=== PATIENT | male | born 1960 | race Caucasian/White ===

== ENCOUNTER → 2021-11-03 13:43 | Outpatient (BNVA) | payer OTHER, SELFPAY | PROVIDERS: PCP Physician Assistant Medical; Visit Provider Psychiatry & Neurology Neurology | DX: G44.049 Chronic paroxysmal hemicrania, not intractable (principal); R42 Dizziness and giddiness | CPT/HCPCS: 99212 ==

== ENCOUNTER → 2022-04-22 14:51 | Outpatient (BNVA) | payer OTHER, SELFPAY | PROVIDERS: PCP Physician Assistant Medical; Visit Provider Psychiatry & Neurology Neurology | DX: G44.049 Chronic paroxysmal hemicrania, not intractable (principal); R42 Dizziness and giddiness | CPT/HCPCS: 99212 ==

== ENCOUNTER → 2022-10-22 10:54 | Outpatient (BNVA) | payer OTHER, SELFPAY | PROVIDERS: PCP Physician Assistant Medical; Visit Provider Nurse Practitioner Family | DX: G44.049 Chronic paroxysmal hemicrania, not intractable (principal); R42 Dizziness and giddiness | CPT/HCPCS: 99212 ==

== ENCOUNTER 2023-04-26 10:47 | Outpatient (AMB) | payer OTHER, SELFPAY ==
--- NOTE | 2023-04-26 10:55 | MHC.OFFVIS ---
Intake Vital Signs 04/26/23 11:00 Weight 174 lb 8 oz BP 122/72 Blood Pressure Location Lt brachial Position Sitting Pulse 79 Pulse Source Pulse Oximeter Pulse Oximetry (%) 94 Oxygen Delivery Method Room Air Intake Visit Reasons: 6 months follow up Intake Note: 6 F/U, states still getting headaches but not the light bolts one Allergies Vitamin b12 Allergy (Severe, Uncoded 04/26/23 10:57) Anaphylaxis HPI HPI Comments History of Present Illness Details 62-year-old male comes for follow-up of his paroxysmal hemicrania and dizziness. Pt reports he started vestibular therapy. He states that he is not dizzy when he stands up and feels better. Pt reports daily bilateral temporal pressure headache, it comes and goes. He still takes Motrin almost every day to treat his headache. Pt reports that gabapentin helped with his headaches and his joint pains. However, he did not restart to take gabapentin, he thinks that gabapentin made him dizziness. He reports dizziness which is more like spinning sensation especially with changing positions quickly. He is drinking more water and less soda. [facility] Medical History Vertigo Paroxysmal hemicrania, chronic Lumbar radiculopathy Hyperlipidemia Opioid dependence Emphysema lung Seizure disorder Traumatic brain injury Surgical History No pertinent past surgical history Family History Mother Migraine Pancreatic cancer Father No known health problems Social History (Updated 04/26/23 @ 11:00 by Nohelia Beaver CMA) Alcohol intake: former Year quit: 2012 Patient Tobacco Use Status: Former Tobacco user Quit Date: 2012 Substance Use Type: Heroin Review of Systems Const All systems reviewed & are unremarkable except as noted in HPI and below Physical Exam Vital Signs: Last Vital Signs Pulse 79 04/26/23 11:00 BP 122/72 04/26/23 11:00 Pulse Ox 94 04/26/23 11:00 Oxygen Delivery Method Room Air 04/26/23 11:00 Const General: cooperative and no acute distress Nutritional Appearance: average body habitus Orientation/consciousness: patient oriented x3 Neuro General: patient oriented x3, tone normal, moves all extremities and no focal motor deficits Cognition (Neuro): normal cognition Gait exam (Neuro): Antalgic gait present Assessment & Plan Assessment & Plan (1) Paroxysmal hemicrania, chronic: Code(s): G44.049 - Chronic paroxysmal hemicrania, not intractable (2) Vertigo: Code(s): R42 - Dizziness and giddiness Plan Restart gabapentin 300 mg qHS and magnesium 400 mg qHS. Continue increased fluid intake and vestibular rehab. Medications: New magnesium oxide 400 mg PO DAILY 30 days 30 tabs 5RF gabapentin 300 mg PO BEDTIME 30 days 30 caps 6RF Coding Level of Care Code Est Pt Level 3 (04482) Diagnoses Paroxysmal hemicrania, chronic G44.049 Vertigo R42
[2023-04-26 11:00] VITALS: BP 122/72; PULSE 79; O2SAT 94
== END 2023-04-26 11:17 | disposition home or self-care (01) ==
PROVIDERS: Visit Provider Nurse Practitioner Family
DX: G44.049 Chronic paroxysmal hemicrania, not intractable (principal); R42 Dizziness and giddiness
CPT/HCPCS: 99213

== ENCOUNTER → 2023-04-26 10:47 | Outpatient (BNVA) | payer OTHER, SELFPAY | PROVIDERS: Visit Provider Nurse Practitioner Family | DX: G44.049 Chronic paroxysmal hemicrania, not intractable (principal); R42 Dizziness and giddiness | CPT/HCPCS: 99212 ==

== ENCOUNTER 2023-12-02 13:50 | Outpatient (AMB) | payer MEDICAID, SELFPAY ==
--- NOTE | 2023-12-02 13:51 | A.OFFVIS_ITS ---
Vital Signs 12/02/23 13:52 Height 5 ft 9 in Weight 175 lb 3 oz BMI 25.9 BP 126/82 Blood Pressure Location Rt brachial Position Sitting Pulse 65 Pulse Source Pulse Oximeter Pulse Oximetry (%) 98 Oxygen Delivery Method Room Air Intake Visit Reasons: possible stroke/seizure Intake Note: Patient presents for possible stroke/seizure. Patient following up after episode. Allergies Vitamin b12 Allergy (Severe, Uncoded 12/02/23 13:53) Anaphylaxis Medication List - Last Reconciled 12/02/23 by HARINDER Garcia albuterol sulfate 90 mcg/actuation 2 puffs inhalation Q6H PRN buprenorphine-naloxone 8-2 mg 1 film sublingual DAILY gabapentin 300 mg PO BEDTIME 30 days ibuprofen 800 mg PO Q8H ipratropium-albuterol 20-100 mcg/actuation (Combivent Respimat) 1 puff inhalati on Q6H magnesium oxide 400 mg PO DAILY 90 days meclizine 25 mg PO DAILY PRN HPI Comments Details: Right-handed 63-yr-old male presents for f/u urgent visit. Pt reports this past Wednesday night, he noticed left eye pressure. Then the following day, he felt off all day. He needed to take a nap, but notes that he never takes a nap. Then Wednesday night 8:30pm, he was sitting on the floor (he typically does this when watching TV), he stood up, felt dizzy- like not right in space, then developed right eye pressure which was f/b seeing colorish snow (like TV static) and bilateral cheek numbness, which lasted 2.5-3 minutes. It took a while for the vision to completely clear. No interictal tongue biting/incontinence. After, he felt weak and whoozy. He went to lay down, and felt like he might not wake up in the morning. He did not go to the ER. Over the weekend he did call our on- call service, who advised him to go to the ER, however he was worried he did not have insurance and did not go. The following day, he woke up feeling, weak, not himself. His face still still felt numb. His sister had come over and checked his BP- which was high at times but then normal other times. Since he has noticed that his coordination is off. He goes to put something down with his right hand and misses where he puts it. He denies any preceding infection/injury or diet changes. He denies any previous episodes like this. This was much worse than his usual dizziness, which had been getting worse recently. He does have brief lightening bolt headaches that come in the temples a/w brief bilateral eye seeing light/dark. He has these just every once a while. He is prone to chest pain and SOB. States he does not have a skip operator. Pt reports Dr Ram did resume his dizziness tx. [facility] Medical History Vertigo Paroxysmal hemicrania, chronic Lumbar radiculopathy Hyperlipidemia Opioid dependence Emphysema lung Seizure disorder Traumatic brain injury Surgical History No pertinent past surgical history Family History Mother Migraine Pancreatic cancer Father No known health problems Social History Alcohol intake: former Year quit: 2012 Patient Tobacco Use Status: Former Tobacco user Quit Date: 2012 Substance Use Type: Heroin Physical Exam Vital Signs: Last Vital Signs Pulse 65 12/02/23 13:52 BP 126/82 12/02/23 13:52 Pulse Ox 98 12/02/23 13:52 Oxygen Delivery Method Room Air 12/02/23 13:52 BMI result Body Mass Index 25.9 Const General: cooperative and no acute distress Orientation/consciousness: patient oriented x3 Resp Effort & Inspection: normal respiratory effort and able to speak in complete sentences Neuro Other: Speech clear Muscle strength 5/5 with exception of right lower extremity 5-/5. Antalgic gait General: patient oriented x3 Cranial nerves: Yes CN's II-XII intact bilaterally (With exception of mild right facial asymmetry chronic) Cognition (Neuro): normal cognition Deep tendon reflexes (DTR's): Right triceps reflex intensity grade: 2+, Left triceps reflex intensity grade: 2+, Rt Biceps (C5, C6): 2+, Left biceps reflex intensity grade: 2+, Right brachioradialis reflex intensity grade: 2+, Left brachioradialis reflex intensity grade: 2+, Right patellar reflex intensity grade: 3+ and Left patellar reflex intensity grade: 2+ Psych Appearance: grossly normal Mental Status: mental status grossly normal Speech and movement: Normal speech and movement present Affect: normal affect Attitude: cooperative Assessment & Plan Assessment & Plan (1) Transient visual loss: Code(s): H53.129 - Transient visual loss, unspecified eye Category: Medical (2) Altered mental status: Code(s): R41.82 - Altered mental status, unspecified Category: Medical (3) Vertigo: Code(s): R42 - Dizziness and giddiness Category: Medical (4) Hyperlipidemia: Code(s): E78.5 - Hyperlipidemia, unspecified Category: Medical Plan Note, patient had called our office again on Wednesday and I had spoken to patient. At that time initiating order for a head CT without contrast and a head and neck CTA. Patient did see PCP today who ordered blood work, which patient has done. Head CT and head and neck CTA as ordered. We will also initiate orders for cardiology consult, echocardiogram, 48 hour Holter. Start aspirin 81 mg daily at bedtime. We will follow up upon review of above. Follow-up in clinic as scheduled. Orders: Orders CA echo transthoracic complete Today E78.5 - Hyperlipidemia, unspecified, H53.129 - Transient visual loss, unspecified eye, R07.9 - Chest pain, unspecified, R41.82 - Altered mental status, unspecified, R42 - Dizziness and giddiness ECG holter monitor 48 hour Today E78.5 - Hyperlipidemia, unspecified, H53.129 - Transient visual loss, unspecified eye, R07.9 - Chest pain, unspecified, R41.82 - Altered mental status, unspecified, R42 - Dizziness and giddiness Referrals Cardiology Referral E78.5 - Hyperlipidemia, unspecified, H53.129 - Transient visual loss, unspecified eye, R07.9 - Chest pain, unspecified, R41.82 - Altered mental status, unspecified, R42 - Dizziness and giddiness Medications: New aspirin at bedtime 81 mg PO DAILY 30 days 30 tabs 6RF Scribe Plan - Not visible on output: Reviewed possible medication side effects, including but not limited to drowsiness, dizziness.
[2023-12-02 13:52] VITALS: BP 126/82; PULSE 65; O2SAT 98; BMI 25.9
== END 2023-12-02 14:50 | disposition home or self-care (01) ==
PROVIDERS: PCP Physician Assistant Medical; Visit Provider Nurse Practitioner Family
DX: H53.129 Transient visual loss, unspecified eye (principal); R41.82 Altered mental status, unspecified; R42 Dizziness and giddiness; E78.5 Hyperlipidemia, unspecified
CPT/HCPCS: 99214

== ENCOUNTER → 2023-12-02 13:50 | Outpatient (BNVA) | payer MEDICARE, MEDICAID, SELFPAY | PROVIDERS: PCP Physician Assistant Medical; Visit Provider Nurse Practitioner Family | DX: H53.123 Transient visual loss, bilateral (principal); R41.82 Altered mental status, unspecified; R42 Dizziness and giddiness; E78.5 Hyperlipidemia, unspecified | CPT/HCPCS: 99212 ==

== ENCOUNTER 2023-12-06 13:55 | Outpatient (REF) | payer MEDICARE, MEDICAID, SELFPAY ==
--- NOTE | ~2023-12-06 | CT_ITS ---
EXAMINATION: CT ANGIOGRAM HEAD CT ANGIOGRAM NECK CLINICAL INFORMATION: Reason for Exam H53.129 - Transient visual loss, unspecified eye COMPARISON: None. TECHNIQUE: Initial noncontrast program director scouting imaging of the head and neck was performed. Noncontrast head CT was also performed. Test bolus sequences followed by intravenous administration 70 mL of Omnipaque 350. Helical imaging was performed in the axial plane from the aortic arch to the skull vertex. Delayed postcontrast imaging of the head was also performed. The data was processed at the technologist development workstation for generation of MIP sequences. Angled MIPs and volume rendered reformatted images were also generated at an offline 3D workstation. Stenoses are assessed in accordance with NASCET criteria unless otherwise indicated. DLP: 2356.91 mGy-cm This CT examination was performed using dose optimization techniques as appropriate, variously including the following: *Automated exposure control. *Adjustment of mA and/or kV according to patient size (this includes techniques or standardized protocols for targeted exams where dose is matched to indication/reason for exam; i.e. extremities or head). *Use of iterative reconstruction technique. FINDINGS: CT Head: There is no evidence of acute intracranial hemorrhage or edematous territorial infarction. Encephalomalacia involving the anterior temporal lobes, anterior inferior right frontal lobe, and left gyrus rectus which is likely posttraumatic. There is also encephalomalacia involving the right middle frontal gyrus. Nolasco-white matter differentiation is preserved. The ventricles are normal in size and configuration. No evidence for obstructive hydrocephalus. No abnormal mass effect or midline shift. No extra-axial fluid collections. No pathologic intra-axial enhancement or regional oligemia. No acute soft tissue or osseous abnormalities. Chronic lamina papyracea fractures. The mastoid air cells and paranasal sinuses are clear. CT Neck: Mild thyromegaly with suggestion of several thyroid nodules. The remaining cervical soft tissues are within normal limits. Multilevel cervical spondylosis. CT Upper Chest: The lung apices demonstrate emphysematous changes. Neck CTA: Aortic Arch: Normal contour and caliber. Two vessel branching pattern of the arch with left common carotid artery arising from the brachiocephalic trunk. Great Vessel Origins: No significant stenosis of the branch origins. Right Common Carotid Artery: No focal stenosis or occlusion. Cervical Right Internal Carotid Artery: There is mild circumferential fibrofatty and calcified atherosclerotic plaque involving the proximal cervical right ICA without significant luminal narrowing. The remaining cervical course is widely patent. Left Common Carotid Artery: No focal stenosis or occlusion. Cervical Left Internal Carotid Artery: Mild calcific atherosclerotic disease of the carotid bulb and proximal internal carotid artery without flow-limiting stenosis. Cervical Right Vertebral Artery: Slightly dominant No focal stenosis or occlusion. Cervical Left Vertebral Artery: No focal stenosis or occlusion. Brain CTA: Intracranial Internal Carotid Arteries: No focal stenosis or occlusion. Right Anterior Cerebral Artery: Normal A1 segment. Normal opacification of the distal SOUTH segments. Left Anterior Cerebral Artery: Normal A1 segment. Normal opacification of the distal SOUTH segments. Anterior Communicating Artery: There is a 4 mm inferiorly projecting aneurysm at the junction of the right A1 segment and anterior communicating artery. Right Middle Cerebral Artery: Normal M1 segment of the MCA without focal stenosis or occlusion. Normal arborization of the distal segments. Left Middle Cerebral Artery: Normal M1 segment of the MCA without focal stenosis or occlusion. Normal arborization of the distal segments. Right Vertebral Artery: Normal V4 segment. Left Vertebral Artery: Terminates predominantly as PICA with small branch contributing to the basilar artery Basilar Artery: Normal without focal stenosis or occlusion. Normal appearance of the proximal superior cerebellar arteries. Right Posterior Cerebral Artery: The P1 segment is diminutive. origin of the CONVENTIONS ASSISTANT with robust opacification of the posterior communicating artery. Normal opacification of the distal CONVENTIONS ASSISTANT segments. Left Posterior Cerebral Artery: The P1 segment is diminutive. origin of the CONVENTIONS ASSISTANT with robust opacification of the posterior communicating artery. Normal opacification of the distal CONVENTIONS ASSISTANT segments. Normal opacification of the superior sagittal, straight, transverse, and sigmoid sinuses. CT/CT angio head neck IMPRESSION: 1. No acute intracranial abnormality including hemorrhage, mass effect, hydrocephalus, or acute territorial edematous infarction. 2. Encephalomalacia involving the bilateral frontal and temporal lobes which is likely posttraumatic. There is also a encephalomalacia involving the right middle frontal gyrus which may reflect sequela of prior trauma or chronic infarct. 3. No arterial high grade stenosis or large vessel occlusion in the head or neck. 4. 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 5. Mild thyromegaly with suggestion of several thyroid nodules. Recommend correlation with thyroid function tests and thyroid ultrasound
[2023-12-06] MEDS: iohexoL 350 MG/ML 100 ML INFUS..BTL 70 ML IV (15:20)
[2023-12-07 10:24] LABS: Creatinine POC 1.1 mg/dL (0.5-1.4); GFR POC > 60
== END 2023-12-06 13:56 | disposition home or self-care (01) ==
LOC: HO.CT 13:55
PROVIDERS: PCP Internal Medicine; Visit Provider Nurse Practitioner Family
DX: H53.129 Transient visual loss, unspecified eye (principal); R42 Dizziness and giddiness; E78.5 Hyperlipidemia, unspecified
CPT/HCPCS: 70496; 70498; 82565; Q9967

== ENCOUNTER → 2023-12-24 13:53 | Outpatient (REF) | payer OTHER, SELFPAY ==
--- NOTE | ~2023-12-24 | US_ITS ---
EXAMINATION: US THYROID CLINICAL INFORMATION: [id number] diffuse (endemic) goiter. COMPARISON: None available. TECHNIQUE: Linear transducer grayscale and color Doppler examination with attention to the region of the thyroid. FINDINGS: SIZE: Measurements of the thyroid lobes and nodules are given in sagittal, anteroposterior and transverse dimensions respectively. Right Thyroid Lobe: 5.9 x 2.3 x 2.2 cm, volume 15.6 mL. Parenchyma: The gland echotexture is homogeneous. Thyroid vascularity is normal. Left Thyroid Lobe: 6.1 x 1.8 x 2.2 cm, volume 12.4 mL. Parenchyma: The gland echotexture is homogeneous. Thyroid vascularity is normal. Isthmus: 0.6 cm in maximum AP dimension. Estimated total number of nodules greater than or equal to 1 cm: 2. Wafer Abrading Machine Tender nodules are described as follows: 1. Location: Left mid. Size: 1.4 x 0.9 x 1.0 cm, volume 0.7 mL. Nodule characteristics: Composition: Solid/almost completely solid (2). Echogenicity: Hypoechoic (2). Shape: Not taller than wide (0). Margins: Smooth (0). Echogenic Foci: None (0). ACR TI-RADS total points: 4 ACR TI-RADS category: 4 2. Location: Left inferior. Size: 0.8 x 0.4 x 0.5 cm, volume 0.09 mL. Nodule characteristics: Composition: Solid (2). Echogenicity: Hypoechoic (2). Shape: Not taller than wide (0). Margins: Ill-defined (0). Echogenic Foci: None (0). ACR TI-RADS total points: 4 ACR TI-RADS category: 4 3. Location: Right inferior. Size: 0.6 x 0.4 x 0.5 cm, volume 0.06 mL. Nodule characteristics: Composition: Solid/almost completely solid (2). Echogenicity: Very hypoechoic (3). Shape: Not taller than wide (0). Margins: Ill-defined (0). Echogenic Foci: None (0). ACR TI-RADS total points: 5 ACR TI-RADS category: 4 4. Location: Right inferior. Size: 1.0 x 0.8 x 0.9 cm, volume 0.4 mL. Nodule characteristics: Composition: Solid (2). Echogenicity: Hypoechoic (2). Shape: Not taller than wide (0). Margins: Smooth (0). Echogenic Foci: None (0). ACR TI-RADS total points: 4 ACR TI-RADS category: 4 NODES: No lymphadenopathy is seen in the tissue surrounding the thyroid gland. US/US thyroid IMPRESSION: Multiple TR 4 thyroid nodules the 2 largest measuring 1.4 cm on the left and 1.0 cm on the right which meet criteria for follow-up ultrasound in one, 2, 3, and 5 years. ACR TI-RADS RECOMMENDATION REFERENCE: Ultrasound-guided fine-needle aspiration, followup ultrasound, no further follow up. * TR1 (0 point) and TR2 (2 points): No FNA or follow up. * TR3 (3 points): FNA if more than or equal to 2.5 cm in maximum dimension, followup ultrasound in 1, 3 and 5 years if 1.5 to 2.4 cm in maximum dimension. * TR4 (4-6 points): FNA if more than or equal to 1.5 cm in maximum dimension, followup ultrasound in 1, 2, 3 and 5 years if 1 to 1.4 cm in maximum dimension. * TR5 (more than or equal to 7 points): FNA if more than or equal to 1 cm in maximum dimension, followup ultrasound every year for 5 years if 0.5 to 0.9 cm in maximum dimension. * TR3, TR4 or TR5 nodules that are below the size threshold for followup receive no follow up.
--- NOTE | 2023-12-24 14:04 | HM_ITS ---
* Total monitoring time 2 days. * Underlying rhythm is sinus with an average rate of 68/Min. * Rare supraventricular ectopy. * No significant pauses or AV blocks. * Patient marker used once in association with sinus rhythm. MTDD
--- NOTE | 2023-12-24 14:04 | CA_ITS ---
Transthoracic Echocardiogram Patient (Last, First, Middle): Aroldo Arevalo, Gender: Male Date of : 1960 Age: 63 Procedure Date: 12/24/2023 Procedure Type: Transthoracic Echocardiogram Location: OP Height: 175.26 cm Weight: 77.57 kg BSA: 1.93 m2 Heart Rate: 59 bpm BP: 142 / 65 mmHg Annealer Helper: MARIA DEL CARMEN Referring MD: Kellen Matos DRILL PRESS OPERATOR [employer] Symptoms: E78.5 - Hyperlipidemia, unspecified Study Quality: Adequate ECG Rhythm: Bradycardia Conclusions: - Normal left ventricular size, thickness, systolic function, and wall motion. The visually estimated ejection fraction is between 60-65%. Diastolic function is normal for age. - Normal right ventricular cavity size and systolic function. - The left atrium is likely dilated. Findings Left Ventricle Normal left ventricular size, thickness, systolic function, and wall motion. The visually estimated ejection fraction is between 60-65%. Diastolic function is normal for age. Right Ventricle Normal right ventricular cavity size and systolic function. Atria The left atrium is likely dilated. The right atrium is normal in size. Aortic Valve Normal aortic valve structure and function. There is no aortic valve stenosis. There is trace (trivial) aortic valve regurgitation. Mitral Valve Normal mitral valve structure and function. There is no mitral valve regurgitation. There is no mitral valve stenosis. Pulmonic Valve The pulmonic valve is normal. There is trace pulmonic valve regurgitation. Tricuspid Valve Normal tricuspid valve structure and function. There is no tricuspid valve regurgitation. Normal right atrial pressure. There is no evidence of pulmonary hypertension. Great Vessels All visible segments of the aorta are normal in size. The visualized portions of the pulmonary artery and branches are normal. Venous The inferior vena cava is normal in size and collapses greater than 50% with inspiration. Pericardium/Pleural There is no evidence of pericardial effusion. Prior Study Comparison No prior study available for comparison. Measurements 2D Linear Measurements IVSd: 0.96 0.6-0.9/0.6-1.0 cm LVIDd: 4.86 3.9-5.3/4.2-5.9 cm LVIDd Index: 2.52 2.4-3.2/2.2-3.1 cm/m2 LVIDs: 2.41 2.0-3.6 cm LVPWd: 0.94 0.7-1.1 cm LA Diam: 4.00 2.7-3.8/3.0-4.0 cm LAIDs Index: 2.07 1.5-2.3 cm/m2 LV Mass: 202.32 67-162/88-224 g LV Mass Index: 104.83 43-95/49-115 g/m2 LVOT Diam: 2.00 3.0+(-)1.3 cm 2D Systolic Function EF 4C: 70.50 >55% EF 2C: 67.40 >55% EF BiP: 68.70 >55% Mitral Valve MV Pk E: 0.90 MV PK A: 0.67 MV Decel Time: 193.00 E/A: 1.30 E'Lateral: 11.30 E'Medial: 9.14 E/E' Med: 9.80 E/E' Lat: 8.00 PHT: 56.00 MVA PHT: 3.93 Decel [place]: 4.67 Aortic Valve AoV Pk Myles: 1.56 AoV Mn Myles: 0.87 AoV VTI: 0.31 AoV Pk Grad: 10.00 Aov Mn Grad: 4.00 CONNOR Cont.VTI: 2.59 AI Pk Myles: 3.21 AI [place]: 1.38 LVOT LVOT Pk Myles: 1.24 LVOT Mn Myles: 0.73 LVOT VTI: 0.26 LVOT Pk Grad: 6.00 LVOT Mn Grad: 3.00 LVOT Diam: 2.00 LVOT Area: 3.14 Diastolic Function MV Pk E: 0.90 MV Pk A: 0.67 E/A: 1.30 E'Medial: 9.14 E/E' Med: 9.80 E' Laterial: 11.30 E/E' Lat: 8.00 Right Ventricle TAPSE (mm): 26.10 TVS' Mlyes: 13.80 Tricuspid Valve TR Pk Myles: 1.72 TR Pk Grad: 12.00 RA Press: 3.00 RVSP: 15.00 Great Vessels Aorta Sinus of Valsalva: 3.70 2.0-3.5 cm Ao Asc: 3.30 2.1-3.4 cm Pulmonary Valve PV Pk Myles: 1.18 Peak PV Grad: 6.00 Updated in Other Vendor System with Status of Final Davin Tsai MD electronically signed on 12/25/2023 9:28:46 PM with status of Final
== END ==
LOC: HO.CARD 13:53
PROVIDERS: PCP Internal Medicine; Visit Provider Nurse Practitioner Family
DX: E01.0 Iodine-deficiency related diffuse (endemic) goiter (principal); E78.5 Hyperlipidemia, unspecified; R42 Dizziness and giddiness; R41.82 Altered mental status, unspecified; R07.9 Chest pain, unspecified
CPT/HCPCS: 76536; 93225; 93306

== ENCOUNTER → 2023-12-24 14:04 | Outpatient (BNV) | payer OTHER, SELFPAY | PROVIDERS: PCP Internal Medicine; Visit Provider Internal Medicine Cardiovascular Disease | DX: I47.10 Supraventricular tachycardia, unspecified (principal) | CPT/HCPCS: 93227; 93306 ==

== ENCOUNTER 2024-03-07 13:46 | Outpatient (AMB) | payer OTHER, SELFPAY ==
[2024-03-07 13:51] VITALS: BP 130/60; PULSE 61; BMI 26.2
--- NOTE | 2024-03-07 13:51 | MHC.OFFVIS ---
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 Accompanied by: Self / Same As Patient Allergies Vitamin b12 Allergy (Severe, Uncoded 12/02/23 13:53) Anaphylaxis Medication List - Last Reconciled 03/07/24 by Mike Guy MD albuterol sulfate 90 mcg/actuation 2 puffs inhalation Q6H PRN aspirin 81 mg PO DAILY 30 days buprenorphine-naloxone 8-2 mg 1 film sublingual DAILY gabapentin 300 mg PO BEDTIME 30 days ibuprofen 800 mg PO Q8H ipratropium-albuterol 20-100 mcg/actuation (Combivent Respimat) 1 puff inhalation Q6H magnesium oxide 400 mg PO DAILY 90 days meclizine 25 mg PO DAILY PRN HPI Comments Details: She also has been referred for evaluation of chest pains. It seems that he has had chest pains going on for many years. In fact he saw Cardiology at [facility] almost 10 years ago when it was thought to be rather musculoskeletal. He underwent an exercise stress echocardiogram around that time which was also unremarkable. It seems that he has had off and on pain since that time. He mostly has this on the left side. Can happen any time. Even with movements like shoulder extension extra, he gets a pain. Overall, seems rather musculoskeletal than anginal. No other known cardiac issues like coronary disease or myocardial infarction or cardiomyopathy. History of smoking but not in the last few years. He states that his movement is somewhat limited because of musculoskeletal issues. [facility] Medical History Vertigo Paroxysmal hemicrania, chronic Lumbar radiculopathy Hyperlipidemia Opioid dependence Emphysema lung Seizure disorder Traumatic brain injury Surgical History No pertinent past surgical history Family History Mother Migraine Pancreatic cancer Father No known health problems Social History Alcohol intake: former Year quit: 2013 Patient Tobacco Use Status: Former Tobacco user Substance Use Type: Heroin Review of Systems Const Denies chills, Denies fatigue, Denies fever(s), Denies weight gain and Denies weight loss ENT Denies dizziness Card Denies chest pain, Denies leg edema, Denies lightheadedness, Denies palpitations, Denies dyspnea on exertion, Denies orthopnea and Denies other Resp Denies cough and Denies dyspnea on exertion GI Denies hematochezia and Denies change in stool character Musc Denies abnormal gait, Denies muscle weakness, Denies numbness, Denies radiating pain into limb and Denies tingling Neuro Denies abnormal gait, Denies dizziness, Denies numbness and Denies tingling Endo Denies fatigue and Denies palpitations Physical Exam Vital Signs: Last Vital Signs Pulse 61 03/07/24 13:51 BP 130/60 03/07/24 13:51 BMI result Body Mass Index 26.2 Office Procedures EKG Details: EKG with underlying sinus rhythm at 61/Min; cannot exclude old septal infarct; [place] [id number], Complete Assessment & Plan Assessment & Plan (1) Chest pain: Code(s): R07.9 - Chest pain, unspecified Category: Medical Plan In the recent echocardiogram, LVEF is 60-60%; normal diastolic function; suspected left atrial dilatation but otherwise unremarkable. In the Holter, underlying sinus rhythm without any significant arrhythmias. Overall, atypical sounding chronic chest pain but with underlying risk factors including long history of smoking. EKG finding could be related to body habitus. Will screen for any hemodynamically significant CAD with stress test. He states he will not be able to exercise on the treadmill and hence we can do a pharmacological stress test with Lexiscan. Plan based on findings. Orders: Orders NM cardiolite stress test Today R07.2 - Precordial pain, R07.9 - Chest pain, unspecified CA lexiscan stress w robbin Today I20.9 - Angina pectoris, unspecified, R07.9 - Chest pain, unspecified Coding Level of Care Code New Pt Level 3 (46992) Diagnoses Chest pain R07.9 CPT Codes EKG - CPT: [id number], Complete ([id number])
== END 2024-03-07 14:35 | disposition home or self-care (01) ==
PROVIDERS: PCP Internal Medicine; Visit Provider Internal Medicine
DX: R07.9 Chest pain, unspecified (principal); R94.31 Abnormal electrocardiogram [ECG] [EKG]
CPT/HCPCS: 93010; 99213

== ENCOUNTER → 2024-03-07 13:46 | Outpatient (BNVA) | payer MEDICARE, MEDICAID, SELFPAY | PROVIDERS: PCP Internal Medicine; Visit Provider Internal Medicine | DX: R07.9 Chest pain, unspecified (principal) | CPT/HCPCS: 93005; 99212 ==

== ENCOUNTER → 2024-04-07 07:49 | Outpatient (REF) | payer OTHER, SELFPAY ==
--- NOTE | ~2024-04-07 | NM_ITS ---
Lexiscan Myocardial perfusion study Indication: Chest pain Technique: The patient was brought in for a Lexiscan perfusion study on 04/07/2024 and was injected 0.4 mg of Lexiscan intravenously. Within a minute of this injection 25 mCi of sestamibi was given intravenously. Images were obtained using the SPECT gamma camera interlaced with the gating device. Images were obtained in supine position. Resting perfusion study was performed on 04/11/2024. Patient was administered 25 mCi of sestamibi intravenously at rest. Images were then obtained in supine position. Total DLP 75 mGy-cm. Images were processed with the software and compared side to side in short axis, horizontal long axis and vertical long axis views. Findings: Raw aquisition reviewed. The stress perfusion study showed decreased tracer uptake along the inferior wall. There is also adjacent subdiaphragmatic tracer uptake. There is improvement but CT attenuation correction. The gated study shows normal LV systolic function with calculated LVEF of > 70%. LV cavity is normal in size. The gated study shows normal wall thickening and contraction of segments. Resting study shows decreased tracer uptake along the inferior wall. Some improvement compared to the stress acquisition. There is improvement with CT attenuation correction. Gating at rest reveals normal wall motion with ejection fraction at 70%. The findings are consistent with inferior wall defect with was were fixed components but suspected to be from diaphragmatic attenuation artifact as well as adjacent subdiaphragmatic tracer uptake. NM/NM cardiolite stress test Impression: 1. Myocardial perfusion imaging study shows probably normal myocardial perfusion. 2. Gated LVEF is > 70% during stress and 70% during rest. 3. Transient ischemic dilatation not present. EKG component of the test reported separately. Electronically signed by: Mike Guy MD 04/12/2024 11:29 AM EDT
--- NOTE | 2024-04-07 07:51 | CA_ITS ---
Acquisition Time: 2024-04-07 07:54:32 Total Exercise Time: 00:02:00 Test Indications: CP Medications: SEE H Protocol: LEXISCAN Max HR: 097 BPM 62% of Pred: 155 BPM Max BP: 160/070 mmHG Max Work Load: 1.6 METS Pharmacological stress test with Lexiscan injection while walking slowly, with mild SOB, no chest discomfort, without arrhythmias, with normotensive response to injeciton, with nondiagnoisitic EKGs. Nuclear images pending. Test reviewed with Dr. Tsai. Referred By: Mike Guy Overread By: Shasta Keller
== END ==
LOC: HO.CARD 07:49
PROVIDERS: PCP Internal Medicine; Visit Provider Internal Medicine
DX: R07.2 Precordial pain (principal); I20.9 Angina pectoris, unspecified
CPT/HCPCS: 78452; 93017; A9500; J0280; J2785

== ENCOUNTER → 2024-04-07 07:51 | Outpatient (BNV) | payer OTHER, SELFPAY | PROVIDERS: PCP Internal Medicine; Visit Provider Nurse Practitioner | DX: R07.9 Chest pain, unspecified (principal) | CPT/HCPCS: 78452; 93016; 93018 ==

== ENCOUNTER 2024-04-27 09:33 | Outpatient (AMB) | payer OTHER, SELFPAY ==
[2024-04-27 09:40] VITALS: BP 115/50; PULSE 64; O2SAT 94; BMI 26.0
--- NOTE | 2024-04-27 09:40 | A.OFFVIS_ITS ---
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 Pt's sister, Angeli, joins via phone. Pt denies any significant interval medical changes. Pt denies any interval episodes of AMS. Head CT/CTA showed encephalomalacia in bilateral frontal and temporal lobes and right middle frontal gyrus which may reflect sequela of prior trauma or chronic infarct, and a 4mm SOUTH aneurysm- for which we referred pt to Dr Ortiz, however they referred pt to [facility] neurosurgery Dr Hahn. Dr Hahn recommended pt undergo f/u angiogram to better assess aneurysms and probable risk- pt wanted to discuss this w/ us before scheduling. Pt does have a history of known TBI. Per sister, aneurysm was initially identified many yrs ago after his TBI. CT also showed incidental Mild thyromegaly with suggestion of several thyroid nodules, for which pt underwent f/u US/biopsy, which was reassuring. Pt has not had thyroid studies. He has since seen cardiology, and is undergoing cardiac work-up. 12/06/23, CT/CT angio head neck IMPRESSION: 1. No acute intracranial abnormality including hemorrhage, mass effect, hydrocephalus, or acute territorial edematous infarction. 2. Encephalomalacia involving the bilateral frontal and temporal lobes which is likely posttraumatic. There is also a encephalomalacia involving the right middle frontal gyrus which may reflect sequela of prior trauma or chronic infarct. 3. No arterial high grade stenosis or large vessel occlusion in the head or neck. 4. 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 5. Mild thyromegaly with suggestion of several thyroid nodules. Recommend correlation with thyroid function tests and thyroid ultrasound 12/24/23, US/US thyroid Multiple TR 4 thyroid nodules the 2 largest measuring 1.4 cm on the left and 1.0 cm on the right which meet criteria for follow-up ultrasound in one, 2, 3, and 5 years. [facility] Medical History Vertigo Paroxysmal hemicrania, chronic Lumbar radiculopathy Hyperlipidemia Opioid dependence Emphysema lung Seizure disorder Traumatic brain injury Surgical History No pertinent past surgical history Family History Mother Migraine Pancreatic cancer Father No known health problems Social History Alcohol intake: former Year quit: 2012 Patient Tobacco Use Status: Former Tobacco user Substance Use Type: Heroin Physical Exam Vital Signs: Last Vital Signs Pulse 64 04/27/24 09:40 BP 115/50 L 04/27/24 09:40 Pulse Ox 94 04/27/24 09:40 Oxygen Delivery Method Room Air 04/27/24 09:40 BMI result Body Mass Index 26.0 Const General: cooperative and no acute distress Orientation/consciousness: patient oriented x3 Resp Effort & Inspection: normal respiratory effort and able to speak in complete sentences Neuro Other: low back pain General: patient oriented x3 Cranial nerves: Yes CN's II-XII intact bilaterally Cognition (Neuro): normal cognition Gait exam (Neuro): Antalgic gait present Psych Appearance: grossly normal Mental Status: mental status grossly normal Speech and movement: Normal speech and movement present Affect: normal affect Attitude: cooperative Results Reviewed Results Reviewed: [facility] Imaging Result Report Patient: Aroldo Arevalo Date of Service: 04/04/21 ? ? Patient Gender: Male Ordering Provider: Laura Lazo : 1960 ? ? ? Final MRI OF BRAIN NO CONTRAST Exam Date: 04/04/2021 3:48 PM Ordering Diagnosis: Primary stabbing headacheHistory of traumatic brain injury (ICH w/ coma secondary to TBI in ) ? MRI of the brain without intravenous contrast. ? HISTORY: Headaches. Prior traumatic brain injury with, secondary to traumatic. Injury in . ? Examination was performed on 1.5 Emilia magnet without administration of intravenous contrast. No previous studies or reports are available for comparison. ? There is no evidence of midline shift. There is no evidence of intra-axial blood fluid collections. There are areas of tissue loss, gliosis in the right frontal lobe and anterior aspects of the temporal lobes bilaterally slightly more prominent on the right. There is some suggestion of porencephalic changes in the arm posterior lateral and anterior inferior right frontal lobe. Gradient echo images revealed foci of blooming artifacts in the anterior right frontal lobe probably due to hemosiderin deposition from previous injury. Corpus callosum is maintained. ? There is no focal areas of restricted diffusion. Ventricular system is symmetric and normal in size. 4th ventricle and basal cisterns are midline and patent. Paranasal sinuses and mastoid processes are aerated. ? CONCLUSIONS: Sequela of from traumatic brain injury involving the right frontal lobe and anterior aspects of the temporal lobes bilaterally as detailed. No acute intracranial abnormalities. ? ? Reading Radiologist: Assessment & Plan Assessment & Plan (1) Altered mental status: Code(s): R41.82 - Altered mental status, unspecified Category: Medical (2) Transient visual loss: Code(s): H53.129 - Transient visual loss, unspecified eye Category: Medical (3) Anterior communicating artery aneurysm: Comment: 4 mm anterior communicating artery aneurysm. Code(s): I67.1 - Cerebral aneurysm, nonruptured Category: Medical (4) Paroxysmal hemicrania, chronic: Code(s): G44.049 - Chronic paroxysmal hemicrania, not intractable Category: Medical Plan Reviewed CT/CT angio head neck: No acute intracranial findings. Chronic Encephalomalacia in bilateral frontal and temporal lobes- likely posttraumatic in setting of known TBI. Chronic encephalomalacia in right middle frontal gyrus which may reflect sequela of prior trauma or chronic infarct. This was noted on 2020 brain MRI as well. Cardiac work-up as planned. No arterial high grade stenosis or large vessel occlusion in the head or neck. 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 Advised pt to have angiogram as advised by neurosurgery- in order to better determine size/shape of this aneurysm, which will allow for better understanding of the risk for rupture/hemorrhage and thus tx/monitoring recomendations. Mild thyromegaly with suggestion of several thyroid nodules.F/u thyroid US showed Multiple TR 4 thyroid nodules the 2 largest measuring 1.4 cm on the left and 1.0 cm on the right which meet criteria for follow-up ultrasound in one, 2, 3, and 5 years, for which we will defer to PCP. Check thyroid studies as ordered. Cardiology f/u as scheduled. Continue Aspirin 81 mg daily at bedtime. Coding Level of Care Code Est Pt Level 4 (73875) Diagnoses Altered mental status R41.82 Transient visual loss H53.129 Anterior communicating artery aneurysm I67.1 Paroxysmal hemicrania, chronic G44.049
== END 2024-04-27 10:47 | disposition home or self-care (01) ==
PROVIDERS: PCP Physician Assistant Medical; Visit Provider Nurse Practitioner Family
DX: R41.82 Altered mental status, unspecified (principal); H53.129 Transient visual loss, unspecified eye; I67.1 Cerebral aneurysm, nonruptured; G44.049 Chronic paroxysmal hemicrania, not intractable
CPT/HCPCS: 99214

== ENCOUNTER → 2024-04-27 09:33 | Outpatient (BNVA) | payer OTHER, SELFPAY | PROVIDERS: PCP Physician Assistant Medical; Visit Provider Nurse Practitioner Family | DX: R41.82 Altered mental status, unspecified (principal); G44.049 Chronic paroxysmal hemicrania, not intractable; I67.1 Cerebral aneurysm, nonruptured; H53.129 Transient visual loss, unspecified eye | CPT/HCPCS: 99212 ==

== ENCOUNTER 2024-04-27 10:50 | Outpatient (REF) | payer OTHER, SELFPAY ==
[2024-04-27 16:55] LABS: Free T4 (Free Thyroxine) 1.02 ng/dL (0.71-1.85); T4 Thyroxine 6.6 ug/dL (4.5-12.0); TSH reflex Free T4 1.15 uIU/mL (0.32-4.0)
[2024-04-28 12:13] LABS: Triiodothyronine T3 Total 106 ng/dL (76-181)
== END 2024-04-27 10:51 | disposition home or self-care (01) ==
LOC: HO.HKASLDS 10:50
PROVIDERS: Visit Provider Nurse Practitioner Family
DX: E01.0 Iodine-deficiency related diffuse (endemic) goiter (principal)
CPT/HCPCS: 36415; 84436; 84439; 84443; 84480

== ENCOUNTER 2024-11-08 13:31 | Outpatient (AMB) | payer OTHER, SELFPAY ==
[2024-11-08 13:35] VITALS: BP 130/70; PULSE 65; O2SAT 96; BMI 26.7
--- NOTE | 2024-11-08 13:35 | MHC.OFFVIS ---
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 Accompanied by: Self / Same As Patient Allergies Vitamin b12 Allergy (Severe, Uncoded 11/08/24 13:37) Anaphylaxis Medication List - Last Reconciled 11/08/24 by HARINDER Garcia albuterol sulfate 90 mcg/actuation 2 puffs inhalation Q6H PRN aspirin 81 mg PO DAILY 30 days buprenorphine-naloxone 8-2 mg 1 film sublingual DAILY carboxymethylcell-glycerin(PF) 0.5-0.9 % (Refresh Tears PF) 1 drp ophthalmic (eye) TID 30 days gabapentin 300 mg PO BEDTIME 30 days ibuprofen 800 mg PO Q8H ipratropium-albuterol 20-100 mcg/actuation (Combivent Respimat) 1 puff inhalation Q6H meclizine 25 mg PO DAILY PRN memantine 7 mg PO DAILY 30 days HPI Comments Details: 63-yr-old male presents for f/u visit for f/u of episode of AMS. Patient denies any significant interval medical history changes. He did have consult with neuro endovascular surgery with Dr. Huffman, at [facility], who advised him to undergo angiogram to better assess the intracranial aneurysm. Patient states he was going to do this however he slipped on some ice and he pulled his right inguinal groin muscle, and was hesitant to have the angiogram as he thought that this would exacerbate the groin pain. He states the pain was getting better, however he lifted his leg over his dog, and it has been hurting again. He feels though it is getting better and it should be better in about a month or so. And thus he is open to having the angiogram at that time. He states that the right groin feels aching. Denies palpable lump or visible hernia. Denies changes to his bowel or bladder. He has had additional cardiac workup, including pharmacological stress test with Lexiscan injectio while walking slowly- which he had mild shortness of breath but no chest pain, arrhythmias, and had a normotensive response to the injection without notable EKG changes. The cardiolite stress test showed probable normal myocardial perfusion with gated LVEF greater than 70% during stress and rest. Patent states that he does still sometimes have at intense brief stabbing headache. He continues to be forgetful. Patient states that he continues to take gabapentin 300 mg daily in the morning- however this was last filled in 2022. 04/27/2024, HPI: Pt denies any significant interval medical changes. Pt denies any interval episodes of AMS. Head CT/CTA showed encephalomalacia in bilateral frontal and temporal lobes and right middle frontal gyrus which may reflect sequela of prior trauma or chronic infarct, and a 4mm SOUTH aneurysm- for which we referred pt to Dr Ortiz, however they referred pt to [facility] neurosurgery Dr Hahn. Dr Hahn recommended pt undergo f/u angiogram to better assess aneurysms and probable risk- pt wanted to discuss this w/ us before scheduling. Pt does have a history of known TBI. Per sister, aneurysm was initially identified many yrs ago after his TBI. CT also showed incidental Mild thyromegaly with suggestion of several thyroid nodules, for which pt underwent f/u US/biopsy, which was reassuring. Pt has not had thyroid studies. He has since seen cardiology, and is undergoing cardiac work-up. 12/06/23, CT/CT angio head neck IMPRESSION: 1. No acute intracranial abnormality including hemorrhage, mass effect, hydrocephalus, or acute territorial edematous infarction. 2. Encephalomalacia involving the bilateral frontal and temporal lobes which is likely posttraumatic. There is also a encephalomalacia involving the right middle frontal gyrus which may reflect sequela of prior trauma or chronic infarct. 3. No arterial high grade stenosis or large vessel occlusion in the head or neck. 4. 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 5. Mild thyromegaly with suggestion of several thyroid nodules. Recommend correlation with thyroid function tests and thyroid ultrasound 12/24/23, US/US thyroid Multiple TR 4 thyroid nodules the 2 largest measuring 1.4 cm on the left and 1.0 cm on the right which meet criteria for follow-up ultrasound in one, 2, 3, and 5 years. [facility] Medical History (Updated 11/08/24 @ 14:13 by HARINDER Garcia) Dry eye of right side Vertigo Paroxysmal hemicrania, chronic Lumbar radiculopathy Hyperlipidemia Opioid dependence Emphysema lung Seizure disorder Traumatic brain injury Surgical History No pertinent past surgical history Family History Mother Migraine Pancreatic cancer Father No known health problems Social History Alcohol intake: former Year quit: 2012 Patient Tobacco Use Status: Former Tobacco user Substance Use Type: Heroin Physical Exam Vital Signs: Last Vital Signs Pulse 65 11/08/24 13:35 BP 130/70 11/08/24 13:35 Pulse Ox 96 11/08/24 13:35 Oxygen Delivery Method Room Air 11/08/24 13:35 BMI result Body Mass Index 26.7 Const General: cooperative and no acute distress Orientation/consciousness: patient oriented x3 Resp Effort & Inspection: normal respiratory effort and able to speak in complete sentences Neuro Other: low back pain- patient has a stand and sit at times throughout the visit. General: patient oriented x3 Cranial nerves: Yes CN's II-XII intact bilaterally Cognition (Neuro): normal cognition Gait exam (Neuro): Antalgic gait present Psych Appearance: grossly normal Mental Status: mental status grossly normal Speech and movement: Normal speech and movement present Affect: normal affect Attitude: cooperative Assessment & Plan Assessment & Plan (1) Altered mental status: Code(s): R41.82 - Altered mental status, unspecified Category: Medical (2) Transient visual loss: Code(s): H53.129 - Transient visual loss, unspecified eye Category: Medical (3) Anterior communicating artery aneurysm: Comment: 4 mm anterior communicating artery aneurysm. Code(s): I67.1 - Cerebral aneurysm, nonruptured Category: Medical (4) Paroxysmal hemicrania, chronic: Code(s): G44.049 - Chronic paroxysmal hemicrania, not intractable Category: Medical Plan Patient is advised to follow up with Cardiology as scheduled. We will reach out to Neurosurgery office to ask them to schedule follow-up or to schedule the angiogram to further assess the intracranial aneurysm. Continue Aspirin 81 mg daily at bedtime. Start memantine ER 7 mg daily- as this may help headache and cognitive difficulties. If tolerated, we will increase dose to 14 mg and 30 days, and again increased by 7 mg every 30 days up to 28 mg daily. I refilled gabapentin today- encouraged patient to take this at bedtime rather than in the morning as he has been doing. Discontinue magnesium order- as patient does not feel it is beneficial and he has a hard time swallowing it. Medications: New carboxymethylcell-glycerin(PF) 0.5-0.9 % (Refresh Tears PF) 1 drp ophthalmic (eye) TID 10 mL 3RF 30 days H04.121 - Dry eye syndrome of right lacrimal gland memantine then stop and increase to 14mg qd 7 mg PO DAILY 30 ea 0RF 30 days Refilled aspirin at bedtime 81 mg PO DAILY 30 tabs 6RF 30 days gabapentin 300 mg PO BEDTIME 30 caps 6RF 30 days Discontinued magnesium oxide Discontinued Reason: Doctor's Order 400 mg PO DAILY 90 days 90 tabs 1RF Coding Level of Care Code Est Pt Level 4 (95243) Diagnoses Altered mental status R41.82 Transient visual loss H53.129 Anterior communicating artery aneurysm I67.1 Paroxysmal hemicrania, chronic G44.049
--- OUTSIDE RECORDS SUMMARY | 2024-11-08 16:06 | XMS_ITS | Encounter Summary ---
Author Organization [facility] Address [address] [place] [address] Care Team Providers Care Curatorial Assistant Name Role Phone Pratik Chavira MD Primary Care Provider [phone] Reason for Visit * Reason Onset Date Comments DME- overnight order 11/03/2024 Encounter Details Date Type Department Care Team (Late st Contact Info) Description 11/03/2024 Telephone [facility] [address] [place] [address] Lili Bennett MA DME- overnight order Social History Tobacco Use Types Packs/Day Years Used Date Smoking Tobacco: Former Cigarettes Q uit: 10/20/2015 Smokeless Tobacco: Never Alcohol Use Standard Drinks/Week Comments No 0 (1 standard drink = 0.6 oz pur e alcohol) Housing Instability Answer Date Recorde d Are you worried that in the next 2 months you may not have stable housing? No 08/31/2024 Food Access & Nutrition Answer Date Rec orded Do you have access to a vari ety of food including fruits and vegetables? No 08/31/2024 Health Literacy Answer Date Recorded How often do you need to hav e someone help you when you read instructions, pamphlets, or other written material from your doctor or pharmacy? Never 08/31/2024 Caregiver: How often do you need to have someone help you when you read instructions, pamphlets, or other written material from your doctor or pharmacy? Not on file 08/31/2024 Financial Risk Answer Date Recorded How hard is it for you to pa y for the very basics like food, housing, medical care, and air conditioning / heating? Not very hard 08/31/2024 Transportation Answer Date Recorded Has the lack of transportati on kept you from meetings, work, or from getting things needed for daily living? No Has the lack of transportati on kept you from medical appointments or from getting medications? No 08/31/2024 Social Isolation Answer Date Recorded How often do you feel lonely or isolated from th ose around you? Never 08/31/2024 Food Risk Answer Date Recorded Within the past 12 months we worried whether our food would run out before we got money to buy more. Never true 08/31/2024 Within the past 12 months th e food we bought just didn't last and we didn't have money to get more. Never true 08/31/2024 Dependent Care Answer Date Recorded Do you need help finding or paying for care for your loved ones. For example, assistant child care teacher or elderly care for an older adult? No 08/31/2024 Education Answer Date Recorded Do you think completing more education or training, like finishing a GED, going to college, or learning a trade, would be helpful for you? No 08/31/2024 Employment and Income Answer Date Recor ded During the last four weeks, have you been actively looking for work? No 08/31/2024 Living Situation Answer Date Recorded What is your living situation? 0 08/31/2024 Sex and Gender Information Value Date Recorded Sex Assigned at Not on file Legal Sex Male 3:42 AM EST Gender Identity Not on file Sexual Orientation Not on file documented as of this encounter Progress Notes * Lili Melton MA - 11/03/2024 3:42 PM EDT Order sent to Nohemy * Lili Melton MA - 11/03/2024 3:38 PM EDT ----- Message from Bill Xiao NP sent at 11/03/2024 11:36 AM EDT ----- Please obtain results from [employer] for patient ALVARO on 2L. documented in this encounter Plan of Treatment Upcoming Encounters Date Type Department Care Team (Late st Contact Info) Description 01/12/2025 10:10 AM EDT Office Visit Pulmonolgy - [place] [address] [place] [phone] Honey Xiao NP [address] [place] [address] documented as of this encounter Visit Diagnoses Not on filedocumented in this encounter Additional Health Concerns Assessment Noted Time PHQ-9 Depression Total Score: 0 08/31/19 25 10:41 AM EST documented as of this encounter Care Teams Curatorial Assistant Relationship Specialty Start Date End Date Pratik Chavira MD [address] [place] [phone] PCP - General Internal Medicine 06/26/24 documented as of this encounter
--- OUTSIDE RECORDS SUMMARY | 2024-11-08 16:07 | XMS_ITS | Encounter Summary ---
Author Organization [facility] Address [address] [place] [address] Care Team Providers Care Breastfeeding Educator Name Role Phone Pratik Chavira MD Primary Care Provider [phone] Reason for Visit * Reason Comments COPD Lung Nodule Encounter Details Date Type Department Care Team (Latest Contact Info) Description 11/03/2024 11:10 AM EDT Office Visit Pulmonolgy - [place] [address] [place] [phone] Honey Xiao NP [address] [place] [address] Centrilobular emphysema (CMS/HCC) (Primary Dx); Lung nodules; Nocturnal hypoxia; Chronic rhinitis Social History Tobacco Use Types Packs/Day Years [...] care for your loved ones. For example, child care director or elderly care for an older adult? [...] on file documented as of this encounter Last Filed Vital Signs Vital Sign Reading Time Taken Comments Blood Pressure 114/70 11/03/2024 11:11 AM EDT Pulse 77 11/03/2024 11:11 AM EDT Temperature 36.7 ??C (98.1 ??F) 11/03/2024 1 1:11 AM EDT Respiratory Rate 16 11/03/2024 11:1 1 AM EDT Oxygen Saturation 96% 11/03/2024 11: 11 AM EDT Inhaled Oxygen Concentration - - Weight 82.5 kg (181 lb 12.8 oz) 025 11:11 AM EDT Height 175.3 cm (5' 9 ) 11/03/2024 11:1 1 AM EDT Body Mass Index 26.85 11/03/2024 11:11 AM EDT documented in this encounter Ordered Prescriptions Prescription Sig Dispense Quantity Refills Last Filled Start Date End Date sodium chloride-aloe vera (Mcfaddin Saline) gel topical gelIndications:Chr onic rhinitis Apply 1 Application to affected nostril(s) if needed (nasal dryness.). 14.1 g 1 11/03/2024 fluticasone propionate (FLONASE) 50 mcg/actuation nasal sprayIndications:C hronic rhinitis Administer 2 sprays into each nostril 1 (one) time each day for 14 days. Shake gently. Before first use, prime pump. After use, clean tip and replace cap. 16 g 1 11/03/2024 5 roflumilast 250 mcg tabletIndications: Centrilobular emphysema (CMS/HCC) Take 1 tablet by mouth 1 (one) time each day. 28 tablet 11/03/2024 5 fluticasone-umecli dinium-vilanterol (Trelegy Ellipta) 100-62.5-25 mcg inhalerIndications :Centrilobular emphysema (CMS/HCC) Inhale 1 puff (100 mcg total) by mouth 1 (one) time each day. Rinse mouth with water after use to reduce aftertaste and incidence of candidiasis. Do not swallow. 1 each 3 11/03/2024 6 documented in this encounter Plan of Treatment Upcoming Encounters Date Type Department Care Team (Late st Contact Info) Description 01/12/2025 10:10 AM EDT Office Visit Pulmonolgy - [place] [address] [place] [phone] Honey Xiao NP [address] [place] [address] documented as of this encounter Visit Diagnoses Diagnosis Centrilobular emphysema (CMS/HCC)- Primary Lung nodules Other diseases of lung, not elsewhere classified Nocturnal hypoxia Chronic rhinitis documented in this encounter Discontinued Medications Medication Sig Discontinue Reason Start Date End Da te fluticasone propion-salmeteroL (Wixela Inhub) 500-50 mcg/dose diskus inhalerIndications: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 Formulary change 08/03/2024 11/03/2024 umeclidinium (Incruse Ellipta) 62.5 mcg/actuation inhalationIndications:Mix ed simple and mucopurulent chronic bronchitis (CMS/HCC) Inhale 1 puff by mouth 1 (one) time each day. 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 08/01/2024 11/03/2024 documented as of this encounter Additional Health Concerns Assessment Noted Time PHQ-9 Depression Total Score: 0 08/31/19 25 10:41 AM EST documented as of this encounter Care Teams Breastfeeding Educator Relationship Specialty Start Date End Date Pratik Chavira MD [address] [place] [phone] PCP - General Internal Medicine 06/26/24 documented as of this encounter
--- OUTSIDE RECORDS SUMMARY | 2024-11-08 16:07 | XMS_ITS | Encounter Summary ---
Author Organization [facility] Address [address] [place] [address] Care Team Providers Care Cardiopulmonary Supervisor Name Role Phone Pratik Chavira MD Primary Care Provider [phone] Reason for Visit * Reason Onset Date Comments Fitting for DME 10/09/2024 DME Ensure Encounter Details Date Type Department Care Team (Late st Contact Info) Description 10/09/2024 [facility] [address] [place] [phone] Pratik Chavira MD [address] [place] [phone] Fitting for DME (DME Ensure) Social History Tobacco Use Types Packs/Day Years [...] care for your loved ones. For example, early childhood specialist or elderly care for an older adult? [...] as of this encounter Progress Notes * Joel Alfred MA - 10/11/2024 1:04 PM EST No dx to support or justify the use,need or necessity of the product requested I do not see weight loss, dysphagia etc... Unable to contact the patient at this time ,will try again later * Misa Espino RN - 10/09/2024 5:03 PM EST Ok to wait * Ifeoma Bauer - 10/09/2024 4:46 PM EST DME REQUEST Name of Product: [place] Ensure Specific information about product n/a # Needed 60 Reason patient is asking for this supply? Appetite Have you received this supply before? If yes , when?: No Have you discussed the need for this supply with a provider at a recent visit? If yes, with who andwhen? No When completed: Fax to other office/MD/pharmacy at fax # [facility] F# [phone] Have you told the patient it will take 7-10 days for completion of this request? Yes documented in this encounter Plan of Treatment Upcoming Encounters Date Type Department Care Team (Late st Contact Info) Description 01/12/2025 10:10 AM EDT Office Visit Pulmonolgy - [place] [address] [facility] [address] [place] [phone] Honey Xiao NP [address] [facility] [address] [place] [address] documented as of this encounter Visit Diagnoses Not on filedocumented in this encounter Additional Health Concerns Assessment Noted Time PHQ-9 Depression Total Score: 0 08/31/19 25 10:41 AM EST documented as of this encounter Care Teams Cardiopulmonary Supervisor Relationship Specialty Start Date End Date Pratik Chavira MD [address] [place] [phone] PCP - General Internal Medicine 06/26/24 documented as of this encounter
--- OUTSIDE RECORDS SUMMARY | 2024-11-08 16:07 | XMS_ITS | Clinical Summary ---
Author Organization [address] [facility] [address] Address [address] [place] [phone] Phone Care Team Providers Care Junk Removal Specialist Name Role Phone Pratik Chavira MD Primary Care Provider [phone] Allergies Active Allergy Reactions Criticality Noted Date Comments Cyanocobalamin (Vitamin B12) 015 Diarrhea, swollen throat Medications albuterol HFA (PROAIR HFA ; PROVENTIL HFA ; VENTOLIN HFA) 90 mcg/actuation inhaler Inhale 2 Puffs into the lungs every 6 hours as needed for Cough or Wheezing. 02/02/20 24 Active magnesium oxide (MAG-OX) 400 mg (241.3 elemental magnesium) tablet 04/26/20 23 Active gabapentin (NEURONTIN) 300 mg capsule Take 1 capsule (300 mg total) by mouth 2 (two) times a day. 04/23/20 22 Active buprenorphine-n aloxone (SUBOXONE) 8-2 mg per SL film Place under the tongue daily. 1 1/2 daily Active meclizine (ANTIVERT) 25 mg tablet Take 1 tablet (25 mg total) by mouth 3 (three) times a day if needed for dizziness. 90 tablet 1 06/27/20 24 Active ibuprofen (ADVIL,MOTRIN) 600 mg tablet TAKE 1 TABLET BY MOUTH EVERY 6 HOURS NEEDED FOR PAIN FOR UP TO 68 DAYS. 360 tablet 10/25/19 25 Active fluticasone-ume clidinium-vilan terol (Trelegy Ellipta) 100-62.5-25 mcg inhalerIndicati ons:Centrilobul ar emphysema (CMS/HCC) Inhale 1 puff (100 mcg total) by mouth 1 (one) time each day. Rinse mouth with water after use to reduce aftertaste and incidence of candidiasis. Do not swallow. 1 each 3 11/04/19 25 2025 Active roflumilast 250 mcg tabletIndicatio ns:Centrilobula r emphysema (CMS/HCC) Take 1 tablet by mouth 1 (one) time each day. 28 tablet 11/04/19 25 2024 Active fluticasone propionate (FLONASE) 50 mcg/actuation nasal sprayIndication s:Chronic rhinitis Administer 2 sprays into each nostril 1 (one) time each day for 14 days. Shake gently. Before first use, prime pump. After use, clean tip and replace cap. 16 g 1 11/04/19 25 2024 Active sodium chloride-aloe vera ([place] Saline) gel topical gelIndications: Chronic rhinitis Apply 1 Application to affected nostril(s) if needed (nasal dryness.). 14.1 g 1 11/04/19 25 Active famotidine (PEPCID) 20 mg tabletIndicatio ns:Mixed simple and mucopurulent chronic bronchitis (CMS/HCC),Centr ilobular emphysema (CMS/HCC) TAKE 1 TABLET BY MOUTH 2 TIMES DAILY NEEDED FOR HEARTBURN. 180 tablet 1 11/08/19 25 Active famotidine (PEPCID) 20 mg tablet Take 1 Tablet by mouth 2 times daily as needed for Heartburn. 02/02/20 24 2024 Discontinued(R eorder) ibuprofen (ADVIL,MOTRIN) 600 mg tablet TAKE 1 TABLET BY MOUTH EVERY 6 HOURS NEEDED FOR PAIN FOR UP TO 68 DAYS. 06/17/20 23 2024 Discontinued(R eorder) umeclidinium (Incruse Ellipta) 62.5 mcg/actuation inhalationIndic ations: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 1 each 2 08/01/20 24 2024 Discontinued roflumilast (Daliresp) 250 mcg tabletIndicatio ns:Mixed simple and mucopurulent chronic bronchitis (CMS/HCC) Take 1 tablet by mouth 1 (one) time each day. 28 tablet 08/01/20 24 2024 Discontinued fluticasone propion-salmete roL (Wixela Inhub) 500-50 mcg/dose diskus inhalerIndicati ons: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 60 each 3 08/03/20 24 2024 Discontinued(F ormulary change) Active Problems Problem Noted Date Diagnosed Date Lung nodules 08/13/2024 Overweight (BMI 25.0-29.9) 08/13/2024 Chronic vertigo 06/27/2024 Nocturnal hypoxia 05/18/2024 Cerebral aneurysm 01/14/2024 Overview (05/18/2024): Last Assessment & Plan: Mr. Arevalo had a CTA of the head because of some headaches and visual changes. 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 He says he heard about 8 years ago but thought he did not have to worry about it. I explained that his aneurysm was small and did not need intervention at this time, but that they can grow over time and could ultimately need treatment. I explained that he needed to have someone follow it likely with serial imaging. We will refer him to interventional neuroradiology for evaluation Chronic left-sided low back pain with left-sided sciatica 01/14/2024 Overview (05/18/2024): Last Assessment & Plan: Mr. Arevalo describes years of low back pain with radiation down the left leg in an S1 distribution. He has difficult time standing upright or sitting for any length of time. He gets relief by getting down on the floor or by standing and leaning over. I am going to order some plain x-rays of the lumbar spine and then send him for physical therapy. I told him I would call and let him know that I saw the x- rays. He will follow-up with us in 6 to 8 weeks for repeat evaluation. Chronic neck pain 01/14/2024 Overview (05/18/2024): Last Assessment & Plan: Mr. Arevalo describes chronic pain in his neck without radiation to the arms or hands. He had a CT of the cervical spine which revealed multilevel cervical spondylosis. He says that he does not think he would consider having any kind of surgical intervention, but he did agree to go to physical therapy and get x-rays of his cervical spine. I told him I would call him once I have the results of the x-rays available. He will follow-up with us in approximately 6 to 8 weeks for repeat evaluation. 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 04/11/2020 Trigger middle finger of right hand 04/11/2020 Centrilobular emphysema 07/26/2019 Lumbar radiculopathy, chronic 01/03/2019 Allergic rhinitis due to pollen 2018 Mixed simple and mucopurulent chronic bronchitis 2018 Post-nasal drainage 2018 Lumbar radicular pain 07/14/2018 Hypertriglyceridemia 07/03/2016 Marijuana use 03/12/2015 Opioid dependence 03/12/2015 Pain in shoulder 03/12/2015 Encounters Date Type Department Care Team Description 11/03/2024 11:10 AM EDT Office Visit [address] [phone] Honey Xiao NP Centrilobular emphysema (CMS/HCC) (Primary Dx); Lung nodules; Nocturnal hypoxia; Chronic rhinitis 11/03/[address] [phone] Lili Bennett MA DME- overnight order 10/09/2024 Telephone Internal Medicine - [facility] [address] [place] [address] Pratik Chavira MD Fitting for DME (DME Ensure) 08/31/2024 10:30 AM EST Telemedicine Wire Dropper - [facility] [address] [place] [phone] Medicare annual wellness visit, subsequent (Primary Dx) 08/14/2024 Telephone Wire Dropper - [facility] [address] [place] [phone] Mayra Franco MA Medicare Annual Wellness Visit Subsequent (AWV DUE 2024) from Last 3 Months Immunizations Name Administration Dates Next Due Influenza Quadrivalent, 0.5m l, preservative free (Fluarix; FluLaval; Fluzone) ages 6mo and older (Afluria) 3yo and older 05/28/2021,04/23/2020 Moderna SARS-CoV-2 COVID-19, mRNA, LNP-S, preservative free 11/11/2020,10/14/2020 Pneumococcal conjugate 13 va lent (Prevnar 13, PCV13) 2mo and older 2018 Td Tetanus diptheria (Tdvax) 7yo and older 03/08 Zoster recombinant (Shingrix) 19yo and older 02/2020,03/21/2020 Surgical History Surgery Date Site/Laterality Comments OTHER SURGICAL HISTORY PROCEDURE: DENIES PREVIOUS SURGERY Medical History Medical History Date Comments Hypertriglyceridemia 07/03/2016 DX:Hypertri glyceridemia Benign paroxysmal vertigo of both ears DX:Benign paroxysmal vertigo of both ears Paroxysmal hemicrania, chronic D X:Paroxysmal hemicrania, chronic Lumbar radiculopathy DX:Lumbar r adiculopathy Opioid dependence DX:Opioid depe ndence ([facility]) Emphysema lung ([facility]) DX:Emph ysema lung ([facility]) Seizure disorder ([facility]) DX:Se izure disorder ([facility]) Traumatic brain injury ([facility]) DX:Traumatic brain injury ([facility]) Shortness of breath DX:Shortness of breath Difficulty balancing DX:Difficul ty balancing COPD (chronic obstructive pu lmonary disease) ([facility]) DX:COPD (chronic obstructive pulmonary disease) ([facility]) Family History Medical History Relation Name Comments No Known Problems Daughter Other: Other Mother Diabetes Son Relation Name Status Comments Daughter Alive Father Mother Sister 1 Alive Sister 2 Alive Son Alive Social History Tobacco Use Types Packs/Day Years Used Date Smoking Tobacco: Former Cigarettes Q uit: 10/20/2015 Smokeless Tobacco: Never Tobacco Cessation:Counseling Given: Not Answered Alcohol Use Standard Drinks/Week Comments No 0 [...] your loved ones. For example, child care specialist or elderly care for an older [...] on file Sexual Orientation Not on file Obstetrics History Last Filed Vital Signs Vital Sign Reading [...] Mass Index 26.85 11/03/2024 11:11 AM EDT Plan of Treatment Upcoming Encounters Date Type Department Care Team (Late st Contact Info) Description 01/12/2025 10:10 AM EDT Office Visit Pulmonolgy - [place] [address] [facility] [address] [place] [phone] Honey Xiao NP [address] [facility] [address] [place] [address] Health Maintenance Due Date Last Done Comments RSV Immunization Patients 60+ Years Old (1 - Risk 60-74 years 1-dose series) 2018 Pneumococcal Vaccine: 50+ Years (2 of 2 - PPSV23) 01/10/2019 2018 Pneumococcal Vaccine: Pediatrics (0 to 5 Years) and At-Risk Patients (6 to 64 Years) (2 of 2 - PPSV23) 01/10/2019 2018 Abdominal Aortic Aneurysm (AAA) Screen 07/25/2022 Colorectal Cancer Screening: FIT-DNA (Cologuard) 07/25/2022 COVID-19 Vaccine ( season) 2024 07/27/2022, 07/22/2021, 11/11/2020, Additional history exists Influenza Vaccine (#1) 2024 05/28/2021, 2019 Lung Cancer Screening (Low Dose CT) 12/14/2024 12/15/2023, 12/14/2023, 02/02/2022, Additional history exists Depression Screening 08/31/2025 08/31/2024 Falls Risk Assessment 08/31/2025 08/31/2024 Medicare Annual Wellness Visit 08/31/2025 08/31/2024 Social Influencers of Health Screening 08/31/2025 08/31/2024 Cholesterol Screening (Lipid Panel) 06/27/2029 06/27/2024, 12/02/2023 DTaP,Tdap,and Td Vaccines (2 - Td or Tdap) 03/08/2033 03/08/2023 Hepatitis C Screening Completed 03/14/2019 Zoster Vaccines Completed 05/22/2020, 03/21/2020 HIB Vaccines Aged Out No longer eligi ble based on patient's age to complete this topic HPV Vaccines Aged Out No longer eligi ble based on patient's age to complete this topic Hepatitis A Vaccines Aged Out No long er eligible based on patient's age to complete this topic Hepatitis B Vaccines Aged Out No long er eligible based on patient's age to complete this topic IPV Vaccines Aged Out No longer eligi ble based on patient's age to complete this topic MMR Vaccines Aged Out No longer eligi ble based on patient's age to complete this topic Meningococcal ACWY Vaccine Aged Out N o longer eligible based on patient's age to complete this topic Meningococcal B Vacine Aged Out No lo nger eligible based on patient's age to complete this topic RSV Immunization Patients Under 20 months Aged Out No longer eligible based on patient's age to complete this topic Varicella Vaccines Aged Out No longer eligible based on patient's age to complete this topic Procedures Procedure Name Priority Date/Time Associated Diagnosis Comments PULMONARY FUNCTION TESTING Routine 10/02/2024 4:14 PM EST LIPID PANEL WITH REFLEX TO DIRECT LDL Routine 06/27/2024 10:14 AM EST Hypertriglyceridemi a CT LUNG SCREENING LOW DOSE Routine 12/15/2023 1:47 PM EDT Personal history of nicotine dependence HM HEPATITIS C SCREENING Routine 03/14/2019 from Last 3 Months or Most Recently Relevant to Health Maintenance Results * Pulmonary function testing: (10/02/2024 4:14 PM EST) us Historical Provider MD PFT ORDERABLES Final Res ult * (ABNORMAL) Lipid panel with reflex to direct LDL (06/27/2024 10:14 AM EST) Cholesterol 213(H) 0 - 200 mg/dL LAB CHEMISTRY METHOD 06/27/2024 3:22 PM [facility] Triglycerides 129 0 - 150 mg/dL LAB CHEMISTRY METHOD 06/27/2024 3:22 PM EST [facility] HDL 43 >=40 mg/dL LAB CHEMISTRY METHOD 06/27/2024 3:22 PM EST [facility] LDL Calculated 144(H) 0 - 100 mg/dL LAB CHEMISTRY METHOD 06/27/2024 3:22 PM [facility] VLDL Cholesterol Terrence 25.8 mg/dL LAB CHEMISTRY METHOD 06/27/2024 3:22 PM EST [facility] Non HDL Chol. (LDL+VLDL) 170(H) <145 mg/dL LAB CHEMISTRY METHOD 06/27/2024 3:22 PM [facility] Chol/HDL Ratio 5.0(H) 0.0 - 4.4 LAB CHEMISTRY METHOD 06/27/2024 3:22 PM [facility] Blood Venous blood specimen / Unknown Venipuncture / Unknown 06/27/2024 10:14 AM EST 06/27/2024 10:14 AM EST us Pratik Chavira MD LAB BLOOD ORDERABLES Final Res ult [facility] [address] [place] [address], * CT LUNG SCREENING LOW DOSE (12/15/2023 1:47 PM EDT) Anatomical Region Laterality Modality Computed Tomogra phy 12/14/2023 11:3 8 AM EDT Narrative 12/15/2023 1:47 PM EDT [facility] Diagnostic Imaging Department [address] [place] [address] Patient: ??AROLDO AREVALO ?/Age/Sex: 1960 - 63 - M Unit#: ??[id number] ? Location/Status: ??SPDICATLS/REG CLI ? Mnemonic/Ordering Site: ??CTLUNGLD/SPCT Ordering Physician: ??NERISSA DUNN MD CT Lung Screening Low Dose - 12/14/23 - 1147 Report Status:Signed History: History of smoking. Cancer screening Comparison: 11/24/2022 Technique: Helical volumetric imaging of the thorax was performed, using low- dose technique, without IV contrast. Iterative reconstruction technique Findings: Mediastinum: Normal sized heart and great vessels. No mediastinal lymphadenopathy. The central airways are clear. Lungs and Airways: Severe emphysematous changes in the lungs. Atelectasis in the lung bases. No suspicious pulmonary nodule. Abdomen: This study was performed without contrast and with lower than standard dose. These factors reduce the sensitivity for detection of small lesions in the upper abdomen. Soft tissues and bones: Degenerative changes with no acute abnormality. Impression: No suspicious pulmonary nodules. Lung Rads Category: 1 - Negative. Continue annual screening with low-dose CT in 12 months Dictating Physician: ??SHAY PEPPER MD Electronically Signed by: ??SAHY PEPPER MD Dic Date/Time: ??12/15/23 9900 Sign date/Time: ??12/15/23 8580 Procedure Note Shay Pepper MD - 08/19/2024 [facility] Diagnostic Imaging Department [address] [place] [id number] Patient: AROLDO AREVALO Gwen /Age/Sex: 1960 - 63 - M Unit#: [id number] Location/Status: SPDICATLS/REG CLI Mnemonic/Ordering Site: [facility] Ordering Physician: NERISSA DUNN MD CT Lung Screening Low Dose - 12/14/23 - 1147 Report Status:Signed History: History of smoking. Cancer screening Comparison: 11/24/2022 Technique: Helical volumetric imaging of the thorax was performed, usinglow- dose technique, without IV contrast. Iterative reconstruction technique Findings: Mediastinum: Normal sized heart and great vessels. No mediastinal lymphadenopathy. The central airways are clear. Lungs and Airways: Severe emphysematous changes in the lungs. Atelectasisin the lung bases. No suspicious pulmonary nodule. Abdomen: This study was performed without contrast and with lower thanstandard dose. These factors reduce the sensitivity for detection of small lesionsin the upper abdomen. Soft tissues and bones: Degenerative changes with no acute abnormality. Impression: No suspicious pulmonary nodules. Lung Rads Category: 1 - Negative. Continue annual screening with low-doseCT in 12 months Dictating Physician: SHAY PEPPER MD Electronically Signed by: SHAY PEPPER MD Dic Date/Time: 12/15/23 1346 Sign date/Time: 12/15/23 134 Nerissa Dunn MD IM CT PROCEDURES Final Result * Hepatitis C Screening (03/14/2019) Hepatitis C Screening abstracted us Historical Provider HEALTH MAINTENANCE Final Result from Last 3 Months or Most Recently Relevant to Health Maintenance Insurance [employer] MED[employer] Member Subscriber Plan / Payer (Ef fective 2023-Present) Name:Aroldo Arevalo Relation to Subscriber:Self Name:Aroldo Arevalo Payer ID:[id number] Group ID:[id number] Type:Not on file Address: [place] [address] [address] [id number] Care Teams Junk Removal Specialist Relationship Specialty Start Date End Date Pratik Chavira MD [address] [place] [id number] PCP - General Internal Medicine 06/26/24
== END 2024-11-08 14:21 | disposition home or self-care (01) ==
LOC: HO.HSMS 13:32
PROVIDERS: PCP Physician Assistant Medical; Visit Provider Nurse Practitioner Family
DX: R41.82 Altered mental status, unspecified (principal); H53.129 Transient visual loss, unspecified eye; I67.1 Cerebral aneurysm, nonruptured; G44.049 Chronic paroxysmal hemicrania, not intractable
CPT/HCPCS: 99214

== ENCOUNTER → 2024-11-08 13:31 | Outpatient (BNVA) | payer OTHER, SELFPAY | PROVIDERS: PCP Physician Assistant Medical; Visit Provider Nurse Practitioner Family | DX: R41.82 Altered mental status, unspecified (principal); G44.049 Chronic paroxysmal hemicrania, not intractable; H53.129 Transient visual loss, unspecified eye; I67.1 Cerebral aneurysm, nonruptured; Z79.82 Long term (current) use of aspirin; Z79.899 Other long term (current) drug therapy | CPT/HCPCS: 99212 ==

== ENCOUNTER 2025-05-09 10:59 | Outpatient (AMB) | payer OTHER, SELFPAY ==
[2025-05-09 11:01] VITALS: BP 140/64; PULSE 68; O2SAT 94; BMI 26.0
--- NOTE | 2025-05-09 11:01 | A.OFFVIS_ITS ---
Vital Signs 05/09/25 11:01 Height 5 ft 9 in Weight 176 lb BMI 26.0 BP 140/64 H Blood Pressure Location Rt brachial Position Sitting Pulse 68 Pulse Source Pulse Oximeter Pulse Oximetry (%) 94 Oxygen Delivery Method Room Air Intake Visit Reasons: follow up Intake Note: Patient presents follow up mental state Insurance Underwriter Sales Required: No Accompanied by: Self / Same As Patient Allergies Vitamin b12 Allergy (Severe, Uncoded 05/09/25 11:03) Anaphylaxis Medication List - Last Reconciled 05/09/25 by HARINDER Garcia albuterol sulfate 90 mcg/actuation 2 puffs inhalation Q6H PRN aspirin 81 mg PO DAILY 30 days buprenorphine-naloxone 8-2 mg 1 film sublingual DAILY carboxymethylcell-glycerin(PF) 0.5-0.9 % (Refresh Tears PF) 1 drp ophthalmic (eye) TID 30 days gabapentin 300 mg PO BEDTIME 30 days ibuprofen 600 mg PO Q8H ipratropium-albuterol 20-100 mcg/actuation (Combivent Respimat) 1 puff inhalation Q6H meclizine 25 mg PO DAILY PRN memantine 7 mg PO DAILY 30 days HPI Comments Details: 63-yr-old male presents for f/u visit for f/u of episode of AMS. Pt underwent diagnostic cerebral angiogram on 12/07/2024, which showed a 3mm x 4mm aneurysm of the acom. The dome has a 1mm secondary projection. In December, he and his sister went for a follow-up neuroendovascular consultation with Dr. Nathanael Huerta at [facility], who discussed serial monitoring versus undergoing surgical intervention with the EVT using the WEB device. The patient states that he is still considering this, but he thought he was supposed to have a follow-up appointment. After the angiogram, he stopped taking the gabapentin in the trial of memantine as he was overwhelmed with everything. He notes that he received a call to schedule a thyroid biopsy, and he thought that we had ordered it. He states that since the angiogram, he has been having intermittent episodes of zapping pains in the bilateral temples. He continues to have forgetfulness. 11/08/2024, previous HPI: Patient denies any significant interval medical history changes. He did have consult with neuro endovascular surgery with Dr. Huffman, at [facility], who advised him to undergo angiogram to better assess the intracranial aneurysm. Patient states he was going to do this however he slipped on some ice and he pulled his right inguinal groin muscle, and was hesitant to have the angiogram as he thought that this would exacerbate the groin pain. He states the pain was getting better, however he lifted his leg over his dog, and it has been hurting again. He feels though it is getting better and it should be better in about a month or so. And thus he is open to having the angiogram at that time. He states that the right groin feels aching. Denies palpable lump or visible hernia. Denies changes to his bowel or bladder. He has had additional cardiac workup, including pharmacological stress test with Lexiscan injectio while walking slowly- which he had mild shortness of breath but no chest pain, arrhythmias, and had a normotensive response to the injection without notable EKG changes. The cardiolite stress test showed probable normal myocardial perfusion with gated LVEF greater than 70% during stress and rest. Patent states that he does still sometimes have at intense brief stabbing headache. He continues to be forgetful. Patient states that he continues to take gabapentin 300 mg daily in the morning- however this was last filled in 2022. 04/27/2024, HPI: Pt denies any significant interval medical changes. Pt denies any interval episodes of AMS. Head CT/CTA showed encephalomalacia in bilateral frontal and temporal lobes and right middle frontal gyrus which may reflect sequela of prior trauma or chronic infarct, and a 4mm SOUTH aneurysm- for which we referred pt to Dr Ortiz, however they referred pt to [facility] neurosurgery Dr Hahn. Dr Hahn recommended pt undergo f/u angiogram to better assess aneurysms and probable risk- pt wanted to discuss this w/ us before scheduling. Pt does have a history of known TBI. Per sister, aneurysm was initially identified many yrs ago after his TBI. CT also showed incidental Mild thyromegaly with suggestion of several thyroid nodules, for which pt underwent f/u US/biopsy, which was reassuring. Pt has not had thyroid studies. He has since seen cardiology, and is undergoing cardiac work-up. 12/06/23, CT/CT angio head neck IMPRESSION: 1. No acute intracranial abnormality including hemorrhage, mass effect, hydrocephalus, or acute territorial edematous infarction. 2. Encephalomalacia involving the bilateral frontal and temporal lobes which is likely posttraumatic. There is also a encephalomalacia involving the right middle frontal gyrus which may reflect sequela of prior trauma or chronic infarct. 3. No arterial high grade stenosis or large vessel occlusion in the head or neck. 4. 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 5. Mild thyromegaly with suggestion of several thyroid nodules. Recommend correlation with thyroid function tests and thyroid ultrasound 12/24/23, US/US thyroid Multiple TR 4 thyroid nodules the 2 largest measuring 1.4 cm on the left and 1.0 cm on the right which meet criteria for follow-up ultrasound in one, 2, 3, and 5 years. [facility] Medical History (Updated 05/09/25 @ 16:19 by HARINDER Garcia) Dry eye of right side Vertigo Paroxysmal hemicrania, chronic Lumbar radiculopathy Hyperlipidemia Opioid dependence Emphysema lung Seizure disorder Traumatic brain injury Surgical History No pertinent past surgical history Family History Mother Migraine Pancreatic cancer Father No known health problems Social History Alcohol intake: former Year quit: 2012 Patient Tobacco Use Status: Former Tobacco user Substance Use Type: Heroin Physical Exam Vital Signs: Last Vital Signs Pulse 68 05/09/25 11:01 BP 140/64 H 05/09/25 11:01 Pulse Ox 94 05/09/25 11:01 Oxygen Delivery Method Room Air 05/09/25 11:01 BMI result Body Mass Index 26.0 Const General: cooperative and no acute distress Orientation/consciousness: patient oriented x3 Resp Effort & Inspection: normal respiratory effort and able to speak in complete sentences Neuro General: patient oriented x3 Cranial nerves: Yes CN's II-XII intact bilaterally Cognition (Neuro): normal cognition Gait exam (Neuro): Antalgic gait present Psych Appearance: grossly normal Mental Status: mental status grossly normal Speech and movement: Normal speech and movement present Affect: normal affect Attitude: cooperative Assessment & Plan Assessment & Plan (1) Paroxysmal hemicrania, chronic: Code(s): G44.049 - Chronic paroxysmal hemicrania, not intractable Category: Medical Qualifiers: Intractability: not intractable Qualified Code(s): G44.049 - Chronic paroxysmal hemicrania, not intractable (2) Anterior communicating artery aneurysm: Comment: 4 mm anterior communicating artery aneurysm. Code(s): I67.1 - Cerebral aneurysm, nonruptured Category: Medical (3) Altered mental status: Code(s): R41.82 - Altered mental status, unspecified Category: Medical Qualifiers: Altered mental status type: unspecified Qualified Code(s): R41.82 - Altered mental status, unspecified (4) Transient visual loss: Code(s): H53.129 - Transient visual loss, unspecified eye Category: Medical Qualifiers: Laterality: unspecified laterality Qualified Code(s): H53.129 - Transient visual loss, unspecified eye Plan Reviewed interval [facility] PCP and pulmonology notes, and [facility] neuro endovascular notes. It was mentioned that the patient should have a follow-up with endocrinology in his due to have a follow-up chest CT to monitor known pulmonary nodule; however, the patient is unsure if he has seen an interrelated special education teacher and was unaware of the upcoming chest CT. Informed the patient that we did not order the thyroid biopsy; likely, his PCP did. Encouraged him to call PCP and Pulmonary office to schedule the thyroid biopsy as well as the upcoming chest CT. The patient reports that he will call Dr. Klein?s office, [facility] neuro- endovascular surgery, to ask them to schedule a follow-up appointment to discuss the ongoing management of the known aneurysm. Continue Aspirin 81 mg daily at bedtime. Resume memantine ER 7 mg daily through his follow-up here-for cognition and headache. Resume gabapentin 300 mg daily at bedtime-this may help bitemporal zapping headaches. The patient is advised to contact us if he experiences any difficulties following up on the above appointments, including the upcoming thyroid biopsy and chest CT. Follow up on the review of the above and in 6 months or sooner as needed. Medications: Changed From memantine then stop and increase to 14mg qd 7 mg PO DAILY 30 days 30 ea 0RF To memantine 7 mg PO DAILY 30 ea 6RF 30 days Refilled gabapentin 300 mg PO BEDTIME 30 caps 6RF 30 days Coding Level of Care Code Est Pt Level 4 (40593) Diagnoses Chronic paroxysmal hemicrania, not intractable G44.049 Intractability: not intractable Anterior communicating artery aneurysm I67.1 Altered mental status, unspecified altered mental status type R41.82 Altered mental status type: unspecified Transient visual loss, unspecified laterality H53.129 Laterality: unspecified laterality
--- OUTSIDE RECORDS SUMMARY | 2025-05-09 14:11 | XMS_ITS | Clinical Summary ---
Author Organization [address] [facility] Address [address] [place] [id number] Phone Care Team Providers Care Die Sinker Apprentice Name Role Phone Pratik Chavira MD Primary Care Provider [phone] Allergies Active Allergy Reactions Criticality Noted Date [...] the tongue daily. 1 1/2 daily Active ibuprofen (ADVIL,MOTRIN) 600 mg tablet TAKE 1 TABLET BY MOUTH EVERY 6 HOURS NEEDED FOR PAIN FOR UP TO 68 DAYS. 360 tablet 10/25/19 25 Active sodium chloride-aloe vera ([place] Saline) gel topical gelIndications: Chronic rhinitis Apply 1 Application to affected nostril(s) if needed (nasal dryness.). 14.1 g 1 11/04/19 25 Active Trelegy Ellipta 100-62.5-25 mcg inhalerIndicati ons:Centrilobul ar emphysema (CMS/HCC V24, CMS/HCC V28) INHALE 1 PUFF (100 MCG TOTAL) BY MOUTH 1 (ONE) TIME EACH DAY. RINSE MOUTH WITH WATER AFTER USE TO REDUCE AFTERTASTE AND INCIDENCE OF CANDIDIASIS. DO NOT SWALLOW. 60 each 3 02/27/20 25 026 Active roflumilast (DALIRESP) 500 mcg tabletIndicatio ns:Mixed simple and mucopurulent chronic bronchitis (CMS/HCC V24, CMS/HCC V28),Centrilobu lar emphysema (CMS/HCC V24, CMS/HCC V28),Lung nodules,[place]cturn [place] hypoxia,Chronic rhinitis,Overwe ight (BMI 25.0-29.9) TAKE 1 TABLET (500 MCG TOTAL) BY MOUTH 1 (ONE) TIME EACH DAY. 90 tablet 04/17/20 25 025 Active meclizine (ANTIVERT) 25 mg tablet TAKE 1 TABLET BY MOUTH 3 TIMES A DAY IF NEEDED FOR DIZZINESS. 90 tablet 1 04/23/20 25 Active famotidine (PEPCID) 20 mg tabletIndicatio ns:Mixed simple and mucopurulent chronic bronchitis (CMS/HCC V24, CMS/HCC V28),Centrilobu lar emphysema (CMS/HCC V24, CMS/HCC V28) TAKE 1 TABLET BY MOUTH 2 TIMES DAILY NEEDED FOR HEARTBURN. 180 tablet 1 05/02/20 25 Active meclizine (ANTIVERT) 25 mg tablet Take 1 tablet (25 mg total) by mouth 3 (three) times a day if needed for dizziness. 90 tablet 1 06/27/20 24 025 Discontinued famotidine (PEPCID) 20 mg tabletIndicatio ns:Mixed simple and mucopurulent chronic bronchitis (CMS/HCC V24, CMS/HCC V28),Centrilobu lar emphysema (CMS/HCC V24, CMS/HCC V28) TAKE 1 TABLET BY MOUTH 2 TIMES DAILY NEEDED FOR HEARTBURN. 180 tablet 1 11/08/19 25 025 Discontinued roflumilast (DALIRESP) 500 mcg tabletIndicatio ns:Mixed simple and mucopurulent chronic bronchitis (CMS/HCC V24, CMS/HCC V28),Centrilobu lar emphysema (CMS/HCC V24, CMS/HCC V28),Lung nodules,[place] hypoxia,Chronic rhinitis,Overwe ight (BMI 25.0-29.9) Take 1 tablet (500 mcg total) by mouth 1 (one) time each day. 30 each 2 01/13/20 25 025 Discontinued Active Problems Problem Noted Date Diagnosed Date [...] finger of right hand 04/11/2020 Centrilobular emphysema ([facility] V24, [facility] V2 8) 07/26/2019 Lumbar radiculopathy, chronic 01/03/2019 Allergic rhinitis due to pollen 2018 Mixed simple and mucopurulen t chronic bronchitis ([facility] V24, [facility] V28) 2018 Post-nasal drainage 2018 Lumbar radicular pain 07/14/2018 Hypertriglyceridemia 07/03/2016 Marijuana use 03/12/2015 Opioid dependence ([facility] V24, [facility] V28) Pain in shoulder 03/12/2015 Immunizations Name Administration Dates Next Due Influenza [...] Lumbar radiculopathy DX:Lumbar r adiculopathy Opioid dependence ([facility] V 24, [facility] V28) DX:Opioid dependence (HCC) Emphysema lung ([facility] V24, [facility] V28) DX:Emphysema lung (HCC) Seizure disorder ([facility] V2 4, [facility] V28) DX:Seizure disorder (HCC) Traumatic brain injury ([facility] V24, [facility] V28) DX:Traumatic brain injury (H CC) Shortness of breath DX:Shortness of breath Difficulty balancing DX:Difficul ty balancing COPD (chronic obstructive pu lmonary disease) ([facility] V24, [facility] V28) DX:COPD (chronic o bstructive pulmonary disease) ([facility]) Family History Medical History Relation [...] your loved ones. For example, child care worker or elderly care for an older adult? [...] Sign Reading Time Taken Comments Blood Pressure 122/68 01/12/2025 10:26 AM EDT Pulse 77 01/12/2025 10:26 AM EDT Temperature 36.3 C (97.3 F) 01/12/2025 10:26 AM EDT Respiratory Rate 20 01/12/2025 10:26 AM EDT Oxygen Saturation 95% 01/12/2025 10:26 AM EDT Inhaled Oxygen Concentration - - Weight 78.9 kg (174 lb) 01/12/2025 10:26 AM EDT Height 172.7 cm (5' 8 ) 01/12/2025 10:26 AM EDT Body Mass Index 26.46 01/12/2025 10:26 AM EDT Plan of Treatment Upcoming Encounters Date Type Department Care Team (Late st Contact Info) Description 05/15/2025 11:15 AM EDT Office Visit Internal Medicine - [address] [phone] Guerrero Burgos NP [address] [place] [address] 07/17/2025 11:00 AM EST Office Visit Pulmonology - [place] [address] [place] [address] Honey Xiao, YANIV [address] [place] [address] Health Maintenance Due Date Last Done Comments Hepatitis A Vaccines (1 of 2 - Risk 2-dose series) 1977 RSV Immunization Adult Patients (1 - Risk 60-74 years 1-dose series) 2018 Pneumococcal Vaccine: 50+ Years (2 of 2 - PPSV23) 01/10/2019 2018 Abdominal Aortic Aneurysm (AAA) Screen 07/25/2022 Colorectal Cancer Screening: FIT-DNA (Cologuard) 07/25/2022 COVID-19 Vaccine ( season) 2025 07/27/2022, 07/22/2021, 11/11/2020, Additional history exists Influenza Vaccine (#1) 2025 05/28/2021, 2019 Falls Risk Assessment 08/31/2025 08/31/2024 Medicare Annual Wellness Visit 08/31/2025 08/31/2024 Social Influencers of Health Screening 08/31/2025 08/31/2024 Lung Cancer Screening (Low Dose CT) 12/25/2025 12/25/2024, 12/15/2023, 12/14/2023, Additional history exists Cholesterol Screening (Lipid Panel) 06/27/2029 06/27/2024, 12/02/2023 DTaP,Tdap,and Td Vaccines (2 - Td or Tdap) 03/08/2033 03/08/2023 Hepatitis C Screening Completed 03/14/2019 Zoster Vaccines Completed 05/22/2020, 03/21/2020 Depression Screening Completed 08/31/2024 HIB Vaccines Aged Out No longer eligi [...] age to complete this topic Meningococcal B Vaccine Aged Out No l onger eligible based on patient's age to complete this topic RSV Immunization Patients Under 20 months Aged Out No longer eligible based on patient's age to complete this topic Varicella Vaccines Aged Out No longer eligible based on patient's age to complete this topic Procedures Procedure Name Priority Date/Time Associated Diagnosis Comments CT LUNG SCREENING Routine 12/25/2024 11: 14 AM EDT Encounter for screening for malignant neoplasm of respiratory organs Personal history of nicotine dependence LIPID PANEL WITH REFLEX TO DIRECT LDL Routine 06/27/2024 10:14 AM EST Hypertriglyceridemia HM HEPATITIS C SCREENING Routine 03/14/2019 from Last 3 Months or Most Recently Relevant to Health Maintenance Results * CT Lung Screening (12/25/2024 11:14 AM EDT) Anatomical Region Laterality Modality Chest Computed Tomogra phy 12/25/2024 11:4 7 AM EDT Impressions 12/25/2024 11:58 AM EDT Impression: 1. New 4 mm juxtapleural left upper lobe nodule, for which a follow-up low dose CT is recommended in 6 months. 2. 10 mm left thyroid nodule, for which follow-up thyroid ultrasound could be considered. Lung-RADS Category: Lung-RADS 3: Probably benign nodule(s). Recommend follow up with Low Dose Chest CT in 6 months. Modifier S: Clinically Significant or Potentially Clinically Significant Findings. S modifier given for the left thyroid nodule. Telerad [place]RAYDEN ([id number]) -------- FINAL REPORT -------- Dictated By: Rosa Perea Dictated Date: 12/25/2024 11:47 ET Assigned Physician: Rosa Perea Reviewed and Electronically Signed By: Rosa Perea Signed Date: 12/25/2024 11:58 ET Workstation ID: [id number] Transcribed By: Self Edit Transcribed Date: 12/25/2024 11:47 ET Narrative 12/25/2024 11:58 AM EDT History: 64 year-old 45 pack-year 4 smoker, asymptomatic, for lung cancer screening. Quit smoking 8 years ago. Comparison: 12/14/23 Technique: Helical volumetric imaging of the thorax was performed, using low- dose technique, without IV contrast. DLP: 179.35 mGy/cm CTDIvol: 4.89 mGy Mango Boyle Iterative reconstruction technique Findings: Lungs and Airways: The trachea and central bronchial tree remains patent. Diffuse bronchial wall thickening is consistent with bronchitis in this setting. Severe emphysematous destruction of the pulmonary parenchyma is again seen. Thin bandlike opacities in the lower lungs are compatible with atelectasis or scar, unchanged. A new 4 mm juxtapleural left upper lobe nodule is noted (image 26 series 3). A 4 mm left upper lobe nodule (image 113) is unchanged. Pleura: No pleural or pericardial effusions are seen. Base of neck, mediastinum and heart: The heart remains normal in size. A 10 mm hypoattenuating nodule is seen in the left thyroid lobe. An 11 mm subcarinal lymph node is unchanged as are scattered subcentimeter mediastinal lymph nodes. No developing thoracic lymphadenopathy is seen. Soft tissues: The overlying soft tissues are unremarkable. Abdomen: This study was performed without contrast and with lower than standard dose. These factors reduce the sensitivity for detection of small lesions in the upper abdomen. No significant abnormality is seen. Procedure Note Rosa Perea MD - 12/25/2024 History: 64 year-old 45 pack-year 4 smoker, asymptomatic, for lung cancerscreening. Quit smoking 8 years ago. Comparison: 12/14/23 Technique: Helical volumetric imaging of the thorax was performed, usinglow-dose technique, without IV contrast. DLP: 179.35 mGy/cm CTDIvol: 4.89 mGy Mango Boyle Iterative reconstruction technique Findings: Lungs and Airways: The trachea and central bronchial tree remains patent.Diffuse bronchial wall thickening is consistent with bronchitis in thissetting. Severe emphysematous destruction of the pulmonary parenchyma isagain seen. Thin bandlike opacities in the lower lungs are compatible withatelectasis or scar, unchanged. A new 4 mm juxtapleural left upper lobe nodule is noted (image 26 series3). A 4 mm left upper lobe nodule (image 113) is unchanged. Pleura: No pleural or pericardial effusions are seen. Base of neck, mediastinum and heart: The heart remains normal in size. A10 mm hypoattenuating nodule is seen in the left thyroid lobe. An 11 mmsubcarinal lymph node is unchanged as are scattered subcentimetermediastinal lymph nodes. No developing thoracic lymphadenopathy is seen. Soft tissues: The overlying soft tissues are unremarkable. Abdomen: This study was performed without contrast and with lower thanstandard dose. These factors reduce the sensitivity for detection of smalllesions in the upper abdomen. No significant abnormality is seen. IMPRESSION: Impression: 1. New 4 mm juxtapleural left upper lobe nodule, for which a follow-up lowdose CT is recommended in 6 months. 2. 10 mm left thyroid nodule, for which follow-up thyroid ultrasound couldbe considered. Lung-RADS Category: Lung-RADS 3: Probably benign nodule(s). Recommendfollow up with Low Dose Chest CT in 6 months. Modifier S: ClinicallySignificant or Potentially Clinically Significant Findings. S modifier given for the left thyroid nodule. Telerad PA ([id number]) -------- FINAL REPORT -------- Dictated By: Rosa Perea Dictated Date: 12/25/2024 11:47 ET Assigned Physician: Rosa Perea Reviewed and Electronically Signed By: Rosa Perea Signed Date: 12/25/2024 11:58 ET Workstation ID: [id number] Transcribed By: Self Edit Transcribed Date: 12/25/2024 11:47 ET Nerissa Weaver MD [facility] [place]ED[place] Final Result * (ABNORMAL) Lipid panel with reflex to direct LDL (06/27/2024 10:14 AM EST) Cholesterol 213(H) 0 - 200 mg/dL LAB CHEMISTRY METHOD 06/27/2024 3:22 PM EST [facility] Triglycerides 129 0 - 150 mg/dL LAB CHEMISTRY METHOD 06/27/2024 3:22 PM EST [facility] HDL 43 >=40 mg/dL LAB CHEMISTRY METHOD 06/27/2024 3:22 PM EST [facility] LDL Calculated 144(H) 0 - 100 mg/dL LAB CHEMISTRY METHOD 06/27/2024 3:22 PM EST [facility] VLDL Cholesterol Terrence 25.8 mg/dL LAB CHEMISTRY METHOD 06/27/2024 3:22 PM EST [facility] Non HDL Chol. (LDL+VLDL) 170(H) <145 mg/dL LAB CHEMISTRY METHOD 06/27/2024 3:22 PM EST [facility] Chol/HDL Ratio 5.0(H) 0.0 - 4.4 LAB CHEMISTRY METHOD 06/27/2024 3:22 PM EST [facility] Blood Venous blood specimen / Unknown Venipuncture / Unknown 06/27/2024 10:14 AM EST 06/27/2024 10:14 AM EST Pratik Chavira MD LAB BLOOD ORDERABLES Final Res ult [facility] [address] [place] [address], * Hepatitis C Screening (03/14/2019) Hepatitis C Screening abstracted Historical Provider HEALTH MAINTENANCE Final Result from Last 3 Months or Most Recently Relevant to Health Maintenance Insurance [facility] MEDICARE Member Subscriber Plan / Payer (Ef fective 2023-Present) Name:Aroldo Arevalo Relation to Subscriber:Self Name:Aroldo Arevalo Payer ID:[id number] Group ID:[id number] Type:Not on file Address: [place] [address] [address] [phone] Care Teams Die Sinker Apprentice Relationship Specialty Start Date End Date Pratik Chavira MD [address] [place] [phone] PCP - General Internal Medicine 06/26/24
== END 2025-05-09 11:58 | disposition home or self-care (01) ==
LOC: HO.HSMS 11:00
PROVIDERS: PCP Physician Assistant Medical; Visit Provider Nurse Practitioner Family
DX: G44.049 Chronic paroxysmal hemicrania, not intractable (principal); I67.1 Cerebral aneurysm, nonruptured; R41.82 Altered mental status, unspecified; H53.129 Transient visual loss, unspecified eye
CPT/HCPCS: 99214

== ENCOUNTER → 2025-05-09 10:59 | Outpatient (BNVA) | payer OTHER, SELFPAY | PROVIDERS: PCP Physician Assistant Medical; Visit Provider Nurse Practitioner Family | DX: G44.049 Chronic paroxysmal hemicrania, not intractable (principal); R41.82 Altered mental status, unspecified; I67.1 Cerebral aneurysm, nonruptured; H53.123 Transient visual loss, bilateral | CPT/HCPCS: 99212 ==